=== PATIENT | female | born 1960 | race African-American/Black ===

== ENCOUNTER 2018-08-19 14:13 | Inpatient (IN) | payer SELFPAY ==
[2018-08-19] MEDS ORDERED: Ondansetron PF 4 MG/2 ML Vial IVP PRN (15:22)
[2018-08-19] MEDS ORDERED: Acetaminophen 650 MG in Premix Bag 1 BAG IVPB PRN (15:29)
[2018-08-19] MEDS: Sodium Chloride 0.9% 1,000 ML IV SCH (17:45)
[2018-08-19 17:51] VITALS: BMI 19.8
[2018-08-19] MEDS: niCARdipine HCl 25 MG in Sodium Chloride 0.9% 250 ML 240 ML IVPB SCH (18:21)
--- NOTE | 2018-08-19 21:04 | CON ---
DATE OF CONSULTATION: 08/19/2018 TIME SPENT: 70 minutes time, of that time, greater than 50% was spent with the patient and/or the patient's unit in the hospital. REASON FOR CONSULTATION: ICU management of an acute brain bleed. HISTORY OF PRESENT ILLNESS: The patient was accepted by the ER in transfer from [place]. She apparently was working earlier today and developed a right-sided facial droop with dysarthria. She came in and was found to have a left intraparenchymal brain bleed. It is about 2-1/2 cm in size. She is currently being managed medically for that. Before she left [place], she was given Ativan because they were afraid she would go into alcohol withdrawal. She has been somnolent since receiving the Ativan. PAST MEDICAL HISTORY: Hypertension. PAST SURGICAL HISTORY: Not known. SOCIAL HISTORY: Drinks about 2 beers a day. Occasionally uses marijuana. Smokes half pack per day. 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 ALLERGIES: NONE. MEDICATIONS: Prior to admission, apparently none. REVIEW OF SYSTEMS: Cannot be obtained because the patient is somnolent. PHYSICAL EXAMINATION: VITAL SIGNS: Temperature 96.7, pulse 67, blood pressure 135/90, O2 saturation 94%. GENERAL: She will slightly open her eyes to verbal stimuli. She is able to withdrawal to pain without limitation. HEENT: Pupils 2 mm, reactive. Sclerae anicteric. Oropharynx clear. She has a positive gag. NECK: No adenopathy, JVD, or bruits. LUNGS: Clear without wheezing, rhonchi. CARDIAC: S1, S2 regular without audible murmur. ABDOMEN: Soft, nontender, nondistended. EXTREMITIES: No clubbing, cyanosis, or edema. NEUROLOGIC: She will follow some commands for me. She withdraws to pain on all extremities except for the right arm briskly. LABORATORY DATA: White blood cell count 5.5, hematocrit 39.1, and platelet count 122. INR 1.1, PTT 34.1. Sodium 134, potassium 3.4, chloride 98, CO2 of 23, BUN 4, creatinine 0.6, glucose 115. CT shows a 2.2 x 3.6 cm bleed in the left globus pallidus. ASSESSMENT: 1. Intraparenchymal brain bleed, probably secondary to hypertension. The patient currently not in hypertensive emergency. 2. Altered mental status secondary to brain bleed and perhaps from receiving Ativan. PLAN: 1. She will be monitored in CCU for any respiratory decompensation. At the time of my exam, I did not feel that there was any pressing need to intubate or control the airway. 2. Replace thiamine given her alcohol history. 3. Withhold any type of sedating medications as much as possible. 4. Follow labs. 5. Check chest x-ray tomorrow morning. Job ID: [id number]
--- NOTE | 2018-08-19 22:07 | HP ---
HISTORY OF PRESENT ILLNESS: The patient is a 58-year-old female, who was transferred from [facility] for acute intracranial hemorrhage. History is limited by the patient's condition and most of the history is obtained by records. The patient reportedly was at her job when she had sudden onset of slurred speech and right-sided weakness and was brought to the emergency department for further evaluation. CT head was done on arrival, which is notable for a left basal ganglia intracranial hemorrhage. She was reportedly started on a nitroglycerin drip, although I have no records of vital signs that indicate significant hypertension. She was also given 2 mg of IM Ativan prior to arrival for reported seizure prophylaxis. I am visiting with the patient at the bedside in the [facility] ER. She has a GCS of 9. At this time, she will open her eyes to pain. Her words are incomprehensible and she will localize pain. She has a slightly decreased platelet count at 122. Her coags are normal. The remainder of her electrolytes are fairly unremarkable. Past medical history, past surgical history, and current medication list are unobtainable. Old records indicate that the patient drinks daily, approximately 5 drinks per day and has a history of marijuana abuse. She is also a smoker, but smokes half a pack per day. Lives at home with her family. ALLERGIES: PER RECORDS, NO KNOWN DRUG ALLERGIES. REVIEW OF SYSTEMS: Unobtainable. PHYSICAL EXAMINATION: VITAL SIGNS: Blood pressure is 136/86, pulse is 68, respirations 16, the patient is currently 100% on 2 L nasal cannula, and her temperature is 97.9. She has a GCS of 9. HEENT: Head, normocephalic and atraumatic. Eyes; pupils are small, equal, sluggish. She has a left gaze preference. ENT; oral mucosa is pink, intact, and moist. NECK: Nontender to palpation. RESPIRATORY: She has symmetric chest expansion. No evidence of dyspnea. CARDIOVASCULAR: Regular rate and rhythm. MUSCULOSKELETAL: Right upper extremity is not withdrawal to pain and no motor function is appreciated. She is spontaneously moving the lower extremities and the left upper extremity. withdrawal to pain. NEURO: She has a GCS of 9. She opens her eyes to pain. Her voice is incomprehensible and she localizes pain. ASSESSMENT AND PLAN: This is a 58-year-old female with unknown past medical history, who presented as transfer for acute left basal ganglia intracranial hemorrhage. I suspect that this may be hypertensive in origin. However, she is not currently hypertensive in the department and has no past medical history. She was started on a nitroglycerin drip prior to arrival, but this was to discontinued on arrival to the emergency department here. This may be keeping her blood pressure down. We will plan to admit to the ICU and monitor her closely with q.1 neuro checks. The head of the bed will be elevated at 30 degrees. We will maintain strict blood pressure goal control with systolic blood pressure goal of less than 140. I will plan to repeat her a.m. head CT for repeat evaluation. I have consulted Critical Care as well as the Medicine Team for assistance in management on this patient. I have discussed this plan with Dr. Lake, who is in agreement. Job ID: [id number]
[2018-08-19] MEDS: Famotidine/PF 20 mg/2ml Vial SLOW IVP SCH (22:30)
--- NOTE | 2018-08-20 01:50 | CON ---
DATE OF CONSULTATION: PRIMARY CARE PHYSICIAN: No PCP. CHIEF COMPLAINT: Weakness and slurred speech. HISTORY OF PRESENT ILLNESS: The patient is a 58-year-old female with past medical history of hypertension, who was transferred from the [place] ER for acute intracranial hemorrhage. History is limited and was obtained through her friend who was present at bedside. The hospitalist team was consulted for the medical management. Per review of chart and from the history, the patient was taking lisinopril, dosage unknown. It is not known that the patient was taking any other medication besides that. The patient came to work and found to have left intracranial hemorrhage bleed, and was transferred to the [facility] for further management. The patient smokes cigarettes daily. She had no history of illicit drugs. PAST MEDICAL HISTORY: Hypertension. PAST SURGICAL HISTORY: Unknown. PAST FAMILY HISTORY: Unknown. ALLERGIES: NONE. SOCIAL HISTORY: The patient drinks alcohol. She smokes half a pack per day. MEDICATIONS: Lisinopril. REVIEW OF SYSTEMS: Unable to perform at this point, as the patient did not respond to my questions. PHYSICAL EXAMINATION: VITAL SIGNS: Blood pressure 124/88, respiration rate 17, O2 saturation 99% on nasal cannula, temperature 98.4. HEENT: Head is atraumatic. Ears and nose grossly appears to be normal. Throat , no exudate noted. NECK: No lymphadenopathy noted. CARDIOVASCULAR: No murmurs, rubs, or gallops. Regular rate and rhythm. RESPIRATORY: Clear bilaterally. No wheezes. GASTROINTESTINAL: Soft and nontender. Bowel sounds positive. EXTREMITIES: Lower extremities, no edema noted. NEUROLOGICAL: The patient opens her eyes, will respond to command, but she is unable to say any words. The patient also is unable to move her left upper and lower extremities. The patient was noted to move her Rt upper and lower extremity. Unable to assess sensation as the patient did not respond to my commands. SKIN: No rashes noted. LABORATORY DATA: CBC; white blood cell count 5.5, hemoglobin 12.5, hematocrit 39, platelets 122. INR 1.1. PT 14.3. Chemistry; sodium 134, potassium 3.4, chloride 98, carbon dioxide 23, BUN 4, creatinine 0.67, glucose 115. AST 95, ALT 50. Toxicology screen, salicylate and acetaminophen, negative. Plasma alcohol level positive. CT of the head is reviewed and is significant for intraparenchymal hematoma with left globus pallidus, mild chronic small vessel with white matter ischemic changes noted. ASSESSMENT: 1. Intraparenchymal hemorrhage, likely due to uncontrolled hypertension. 2. Hypertension. 3. Alcohol abuse. 4. Smoker. PLAN: 1. The patient is admitted to the ICU by Neurosurgery. Vice President Payer consulted. The patient is on Cardene drip. We will continue Cardene drip to keep her blood pressure under control. TTE and US carotid ordered. 2. I am placing a consult for Neurology. 3. Follow up with CT head in the morning. 4. Continue current regimen. 5. DVT prophylaxis, SCD. 6. Medical power of tire curer is likely to be a daughter who is coming from [place]. Thank you for the consult. Hospitalist team will continue to follow. Job ID: [id number] TERESE
[2018-08-20 05:14] LABS: #Eosinphils 0.1 thou/uL (0.0-0.7); #Lymphocytes 1.1 thou/uL (1.20-3.40); #Monocytes 0.6 thou/uL (0.11-0.59); %Basophils 0.5 % (0.0-1.0); %Eosinophils 1.2 % (0.0-10.0); %Lymphocytes 18.7 % (21.0-51.0); %Monocytes 9.6 % (0.0-10.0); Hemoglobin 12.4 g/dL (12.0-16.0); Mean Corpuscular HGB CONC 31.7 g/dL (32.0-36.0); Mean Corpuscular Hemoglobin 33.1 pg (27.0-31.0); Mean Platelet Volume 9.1 fL (7.4-10.4); Platelet Count 129 thou/uL (130-400); RBC Distribution Width 12.5 % (11.5-14.5); Red Blood Cell (RBC) Count 3.73 mill/uL (4.20-5.40); White Blood Cell (WBC) Count 5.7 thou/uL (4.8-10.8)
[2018-08-20 05:30] LABS: Anion Gap 13 mmol/L (10-20); BUN (Urea Nitrogen) 6 mg/dL (9.8-20.1); Calc. Creatinine Clearance 83 mL/min (70-130); Calcium 9.8 mg/dL (7.8-10.44); Carbon Dioxide 24 mmol/L (22-29); Chloride 103 mmol/L (98-107); Estimated GFR-MDRD Greater than 90; Glucose 93 mg/dL (70-105); Potassium 3.6 mmol/L (3.5-5.1); Sodium 136 mmol/L (136-145)
[2018-08-20] MEDS: Sodium Chloride 0.9% 1,000 ML IV SCH ×2 (06:19→18:13)
--- NOTE | 2018-08-20 07:42 | CT ---
CT OF THE BRAIN WITHOUT IV CONTRAST: INDICATION: Followup intracranial hemorrhage. COMPARISON: Prior CT examination dated 08/19/2018 at 12:30 p.m. FINDINGS: The intraparenchymal hemorrhage centered within the left globus pallidus is slightly increased in siz e now measuring 3.9 x 2.7 cm where it previously measured 3.7 x 2.2 cm. There is slight worsening va sogenic edema surrounding the hemorrhage. There has been interval development of some slight left-to -right midline shift of approximately 3 mm. No hydrocephalus is present. No additional intracranial hemorrhage is evident. The skull and extracranial soft tissues are unremarkable-appearing. IMPRESSION: 1. Interval enlargement of the intraparenchymal hemorrhage seen within the left globus pallidus with interval development of slight [id number] midline shift of 3 mm. 2. Findings were called to Karma Cintron RN caring for this patient in the CCU, at 4:10 a.m. on 08/20/19 19. CODE CR POS: AYDEN
--- NOTE | 2018-08-20 08:12 | PRG ---
DATE OF SERVICE: 08/20/2018 SUBJECTIVE: The patient remains in the CCU. I was able to get her to wake up, state her name. She is able to move her left side without difficulty. She can stick her tongue out. She has a gag reflex. She can move her right leg, but I would assess that strength of 2/5 versus 5/5 on the left side. She cannot move her right arm. OBJECTIVE: VITAL SIGNS: Temperature 98.2, pulse 70, blood pressure 138/88, O2 saturation 100%. HEENT: Unremarkable. NECK: No JVD. CHEST: Clear to auscultation without wheezing or rhonchi. CARDIAC: S1, S2. Regular. ABDOMEN: Soft. EXTREMITIES: No edema. LABORATORY DATA: White blood cell count 5.7, hematocrit 39, and platelet count 129. Sodium 136, potassium 3.6, chloride 103, CO2 of 24, BUN 6, creatinine 0.7, glucose 93. Her chest x-ray shows no mass, effusion, or infiltrate. The CT of the head repeated today shows a slight increase in size and the intraparenchymal brain bleed on the left compared to yesterday. ASSESSMENT: 1. Hemorrhagic cerebrovascular accident. 2. Hypertension. 3. Substance abuse. RECOMMENDATION: 1. Continue blood pressure control with nicardipine. Her airway is stable and she does not need to be intubated. She can likely be transferred out to the stroke floor as soon as her need for nicardipine has been eliminated. That call will ultimately made by the neurosurgeons. 2. Continue thiamine for few more days given history of alcohol intake in the past. 3. DT precautions. Job ID: [id number]
--- NOTE | 2018-08-20 08:35 | RAD ---
CHEST 1 VIEW: INDICATION: Concern for aspiration. COMPARISON: None. FINDINGS: There are patchy opacities within the right lung base which can be seen with aspiration pneumonitis. Two-view chest radiograph if possible may be helpful. Left lung is clear. Heart size is normal. N o acute osseous abnormality is evident. IMPRESSION: Patchy airspace opacity right lower lobe may reflect sequelae of aspiration pneumonitis or pneumonia. POS: BH
--- NOTE | 2018-08-20 08:50 | ULT ---
CAROTID DUPLEX ULTRASOUND: INDICATION: History of CVA. COMPARISON: None. FINDINGS: There is moderate partially calcified atherosclerotic plaque involving the right proximal internal ca rotid artery. There is mild partially calcified atherosclerotic plaque involving the proximal left i nternal carotid artery. There is intimal thickening in the common carotid arteries bilaterally. Peak systolic velocity of the right ICA was 59.7 cm/s and the right CCA 74.5 cm/s. The right IC/CC r atio is 0.8. Peak systolic velocity of the left ICA was 54.2 cm/s and the peak systolic velocity of the left CCA w as 99.4 cm/s. The left IC/CC ratio is 0.55. There is antegrade flow within both vertebral arteries. IMPRESSION: No hemodynamically significant stenosis. POS: BH
[2018-08-20] MEDS: Famotidine/PF 20 mg/2ml Vial SLOW IVP SCH ×2 (09:42→21:35)
--- NOTE | 2018-08-20 12:52 | PRG ---
DATE OF SERVICE: 08/20/2018 SUBJECTIVE: Seeing Mrs. Callaway for a basal ganglia hemorrhage. The patient was seen and examined. I agree with Kerline Warner's evaluation on 08/19/2018. The patient is a 58-year-old woman with hypertension, who had sudden onset right hemiparesis. OBJECTIVE: Currently, she is alert and interactive, although her verbal is slightly sluggish. She has a dense right hemiparesis affecting the arm much greater than the leg. She has strong on the left. LABORATORY DATA: Head CT shows a left basal ganglia hemorrhage. There was some enlargement overnight. The pattern of hemorrhage is typical of hypertensive hemorrhage. IMPRESSION AND PLAN: Nonsurgical hypertensive hemorrhage in the left basal ganglia. A stroke protocol is underway and MRI is pending as well as echocardiography. We will continue with ICU care. Given the slight enlargement on the CT this morning, but tomorrow if things are clinically stable, she can be transferred to the medical service and transferred to the Stroke Unit. Job ID: [id number]
--- NOTE | 2018-08-20 13:13 | MRI ---
BRAIN MRI WITHOUT CONTRAST: DATE: 08/20/2018. COMPARISON: None. HISTORY: Basal ganglia intracranial hemorrhage on left seen on recent CT examination also performed 08/20/2018. TECHNIQUE: Multiplanar multisequence MR imaging of the brain obtained without contrast. FINDINGS: Gradient echo imaging demonstrates prominent blooming artifact centered within the basal ganglia on t he left consistent with the patient's known intraaxial hemorrhage. This hemorrhage measures 4.7 x 3. 2 cm in greatest AP/transverse dimension, slightly enlarged when compared to the prior head CT. Ther e is persistent mass effect on the adjacent left lateral ventricle which is flattened. There is new mild midline shift from left to right at the level, measuring 5 mm at the axial level of the 3rd ventricle. There is surrounding vasogenic edema. Gradient echo imaging demonstrates an add itional area of blooming artifact within the posterior inferior right basal ganglia suggesting remote hemorrhage and/or intracranial calcification. Regional bone marrow signal intensity appears within normal limits. Imaged paranasal sinuses/mastoid air cells are well aerated. Arterial flow voids at axial level of skull base appear grossly unremarkable on the T2 weighted imagi ng. The diffusion weighted imaging demonstrates no evidence for acute infarction. IMPRESSION: Intraaxial hemorrhage centered within the basal ganglia on the left. The hemorrhage has slightly enl arged in size and the degree of mass effect has slightly worsened with new mild [id number]-az-[id number] midline shift. Continued followup via head CT is advised. POS: BRYN
--- NOTE | 2018-08-20 13:36 | CON ---
DATE OF TELEMEDICINE CONSULTATION: 08/20/2018 CHIEF COMPLAINT: Acute intracerebral hemorrhage. HISTORY OF PRESENT ILLNESS: The patient is unable to give history. Her friend was in the room, but he is not sure much of medical history and left during the consultation. The patient apparently is a 58-year-old lady, who was apparently at work and she had sudden onset of facial droop on the right side and fell on her right leg and was brought to the ER. CT of the head showed left basal ganglia intracerebral hemorrhage. Since admission, she has remained stable and she is now able to follow commands and try to talk. Her past medical history positive for hypertension. Past surgical history and medication list are unavailable. I also reviewed her medical records from this hospitalization and per ER doc as well, medical history is unverifiable. SOCIAL HISTORY: Apparently, the patient drinks daily. She uses drugs and abuses marijuana per chart and the patient denies using any smoke tobacco, but her chart states that the patient smokes half pack per day, lives at home with friend. ALLERGIES: NO KNOWN DRUG ALLERGIES. MEDICATION LIST: Unavailable. Her current medications in the hospital are Tylenol, famotidine. She is on nicardipine drip, Zofran, and thiamine. FAMILY HISTORY: Unknown. REVIEW OF SYSTEMS: Difficult to obtain due to the patient's aphasia. PHYSICAL EXAMINATION: VITAL SIGNS: Blood pressure was 130/85, pulse rate is 66, and the patient is afebrile. Her temperature was 98.5. GENERAL APPEARANCE: Thin built, well-nourished lady, who seems to be aphasic, but tries to respond. CHEST: Clear vesicular breathing. CARDIOVASCULAR: S1 and S2 heard. No murmurs. ABDOMEN: Soft. NEUROLOGIC: Higher intellectual function. She is unable to verbalize. She is aphasic, but she is able to follow commands. Cranial nerves 2 through 12, pupils 1 mm reactive and equal bilaterally. Normal extraocular movements. She has decreased facial sensation on the right side. She had a right facial droop. Palate elevates equally. Normal hearing bilaterally. She has tongue deviation to the right. Motor examination; bulk normal, tone is decreased on the right side, strength is 0/5 on the right side and left 4/5 in both upper and lower extremities. She is able to wiggle her toes on the right leg. Muscle groups tested are deltoid, biceps, triceps, wrist extension, flexion, finger extension and flexion bilaterally. In the iliopsoas, hamstrings, quadriceps, ankle dorsiflexion, plantar flexion. Deep tendon reflexes 2+ throughout in upper and lower extremities. Sensory examination, decreased sensation in the right upper and lower extremity as well to touch. Unable to assess proprioception. Cerebellar, normal [id number] on the left side. LABORATORY WORKUP: White count 5.7, hemoglobin 12.4, hematocrit 39, platelets 129. Sodium 136, potassium 3.6, chloride 103, bicarb 24, BUN 6, and creatinine 0.67. DIAGNOSTIC STUDIES: CT of the head showed enlargement of the intraparenchymal hemorrhage within the left globus pallidus with interval development of slight cuoq-of-mfqtn midline shift of 3 mm. Size of hemorrhage is 3.9 x 2.7 cm. IMPRESSION: The patient is a 58-year-old lady with left globus pallidus hemorrhage as noted, likely due to hypertension and her urine tox screen is positive for marijuana and she stated she does not use cocaine. This could be chemical abuse related hemorrhage. Also possible she may have baseline hypertension, which is caused a hypertensive hemorrhage in her case. Her current examination shows the right-sided weakness along with sensory loss consistent with the location of her bleed. RECOMMENDATIONS: Please perform neurologically very closely in the ICU until the patient is more stable, consider PT/OT. Once she is more stable, repeat her CT of the head again on Wednesday to check for the hemorrhage progression. Consider MRI of the brain. I will follow up the patient tomorrow. Job ID: [id number] [facility]
--- NOTE | 2018-08-20 14:27 | PDOC.PN ---
- Subjective Encounter Start Date: 08/20/18 Encounter Start Time: 14:26 Patient seen and examined, no family at bedside. No new issues per staff. - Objective Vital Signs & Weight: Vital Signs (12 hours) Temp BP Pulse Ox 08/20/18 13:00 98.9 F 08/20/18 11:10 148/95 H 08/20/18 08:00 98.5 F 97 08/20/18 04:00 98.2 F Weight Weight 122 lb 5.705 oz Most Recent Monitor Data Heart Rate from ECG 59 NIBP 136/85 NIBP BP-Mean 102 Respiration from ECG 12 SpO2 97 I&O: 08/19/18 08/20/18 08/21/18 06:59 06:59 06:59 Intake Total 1129 Output Total 3 2 Balance 1126 -2 Result Diagrams: 08/20/18 04:27 08/20/18 04:27 Phys Exam - Physical Examination Constitutional: NAD HEENT: PERRLA, moist MMs, sclera anicteric Neck: no nodes, no JVD, supple Respiratory: no wheezing, no rales, no rhonchi Cardiovascular: RRR, no significant murmur, no rub Gastrointestinal: soft, non-tender, no distention, positive bowel sounds Musculoskeletal: no edema, pulses present not moving RLE, RUE weak 3/5 elbow flexion Dx/Plan (1) Brain bleed Code(s): I61.9 - NONTRAUMATIC INTRACEREBRAL HEMORRHAGE, UNSPECIFIED Status: Acute (2) Diabetic ketoacidosis Code(s): E13.10 - OTH DIABETES MELLITUS WITH KETOACIDOSIS WITHOUT COMA Status : Acute (3) Hypertension Code(s): I10 - ESSENTIAL (PRIMARY) HYPERTENSION Status: Acute - Plan * Continue cardene drip for now, target SBP 120-140mmHg * neurosx following * echo pending * work up pending * keep in icu for now
[2018-08-20] MEDS: niCARdipine HCl 25 MG in Sodium Chloride 0.9% 250 ML 240 ML IVPB SCH (18:13)
[2018-08-21 05:40] LABS: #Basophils 0.1 thou/uL (0.0-0.2); #Eosinphils 0.2 thou/uL (0.0-0.7); #Lymphocytes 1.6 thou/uL (1.20-3.40); #Monocytes 0.6 thou/uL (0.11-0.59); #Neutrophils 4.2 thou/uL (1.40-6.50); %Basophils 1.2 % (0.0-1.0); %Eosinophils 2.6 % (0.0-10.0); %Lymphocytes 23.7 % (21.0-51.0); %Monocytes 9.3 % (0.0-10.0); %Neutrophils 63.2 % (42.0-75.0); Hemoglobin 12.3 g/dL (12.0-16.0); Mean Corpuscular HGB CONC 30.7 g/dL (32.0-36.0); Mean Corpuscular Hemoglobin 32.2 pg (27.0-31.0); Mean Platelet Volume 9.2 fL (7.4-10.4); Platelet Count 130 thou/uL (130-400); RBC Distribution Width 12.4 % (11.5-14.5); Red Blood Cell (RBC) Count 3.82 mill/uL (4.20-5.40); White Blood Cell (WBC) Count 6.7 thou/uL (4.8-10.8)
[2018-08-21 06:02] LABS: Anion Gap 12 mmol/L (10-20); BUN (Urea Nitrogen) 7 mg/dL (9.8-20.1); Calc. Creatinine Clearance 90 mL/min (70-130); Calcium 9.6 mg/dL (7.8-10.44); Carbon Dioxide 22 mmol/L (22-29); Chloride 104 mmol/L (98-107); Estimated GFR-MDRD Greater than 90; Glucose 95 mg/dL (70-105); Potassium 3.4 mmol/L (3.5-5.1); Sodium 135 mmol/L (136-145)
[2018-08-21] MEDS: Sodium Chloride 0.9% 1,000 ML IV SCH ×2 (06:34→17:15)
[2018-08-21] MEDS: Amlodipine 10 MG TAB PO SCH (08:23)
[2018-08-21] MEDS: Famotidine/PF 20 mg/2ml Vial SLOW IVP SCH ×2 (08:23→20:09)
--- NOTE | 2018-08-21 08:39 | PRG ---
DATE OF SERVICE: 08/21/2018 SUBJECTIVE: Ms. Callaway is awake, alert. She is able to verbalize. Neurologically, she withdraws all extremities. She moves her left side spontaneously, but will not move her right side spontaneously. OBJECTIVE: VITAL SIGNS: Her temperature is 98.3, pulse 58, blood pressure 148/83, O2 saturation 96%. 24-hour intake 2066 mL, output not quantitated. HEENT: Unremarkable. NECK: No JVD. LUNGS: Clear to auscultation. CARDIAC: S1, S2 regular without murmur. ABDOMEN: Soft, nontender. EXTREMITIES: No edema. LABORATORY DATA: Sodium 135, potassium 3.4, BUN 7, creatinine 0.6, glucose 95. White blood cell count 6.7, hematocrit 40, platelet count 130. ASSESSMENT: 1. Left-sided intracranial hemorrhage with right-sided neglect. 2. Hypertension. 3. Substance abuse. PLAN: The patient will be transferred out to the stroke floor for continued therapy. The nicardipine has been weaned off. I will start her on Norvasc. Continue thiamine for a couple of more days. Job ID: [id number]
--- NOTE | 2018-08-21 11:02 | PDOC.PN ---
- Subjective Encounter Start Date: 08/21/18 Encounter Start Time: 11:00 Patient seen and examined, friend at bedside, no new issues overnight. All questions answered. - Objective Vital Signs & Weight: Vital Signs (12 hours) Temp Pulse Resp BP BP Pulse Ox 08/21/18 09:30 98.8 F 66 18 148/95 H 100 08/21/18 08:23 67 137/92 H 08/21/18 07:57 99 08/21/18 07:53 99.6 F Weight Weight 122 lb 12.76 oz Most Recent Monitor Data Heart Rate from ECG 72 NIBP 137/92 NIBP BP-Mean 107 Respiration from ECG 15 SpO2 98 I&O: 08/20/18 08/21/18 08/22/18 06:59 06:59 06:59 Intake Total 1129 6 630 Output Total 3 10 1 Balance 1126 2055 629 Result Diagrams: 08/21/18 04:28 08/21/18 04:28 Phys Exam - Physical Examination Constitutional: NAD HEENT: PERRLA, moist MMs, sclera anicteric Neck: no nodes, no JVD, supple Respiratory: no wheezing, no rales, no rhonchi Cardiovascular: RRR, no significant murmur, no rub Gastrointestinal: soft, non-tender, no distention, positive bowel sounds Musculoskeletal: no edema, pulses present Right sided deficits Dx/Plan (1) Brain bleed Code(s): I61.9 - NONTRAUMATIC INTRACEREBRAL HEMORRHAGE, UNSPECIFIED Status: Acute (2) Diabetic ketoacidosis Code(s): E13.10 - OTH DIABETES MELLITUS WITH KETOACIDOSIS WITHOUT COMA Status : Acute (3) Hypertension Code(s): I10 - ESSENTIAL (PRIMARY) HYPERTENSION Status: Acute - Plan * continue current medical management * move out of ICU today * no surgical intervention per NeuroSx * continue with PT for now * CM consulted for DC arrangements SNF with rehab or inpatient rehab * DC plans once arrangements made * case and plan d/w patient and friend at [facility], they understood and agreed with this plan (patient was ok discussing medical condition in front of her friend)
--- NOTE | 2018-08-21 13:04 | PRG ---
DATE OF TELEMEDICINE SERVICE: 08/21/2018 CHIEF COMPLAINT: Intracerebral hemorrhage. INTERVAL HISTORY: The patient has remained stable overnight and she is currently on the regular floor. No new symptoms overnight. She continues to have right- sided weakness. Her speech has improved. LABORATORY AND OTHER REPORTS: MRI of the brain was completed on 08/20/2018. Findings show intra-axial hemorrhage within the basal ganglia on the left. Hemorrhage was slightly enlarged in the sides and degree of mass effect has worsened with new mild [id number] midline shift. Her laboratory workup; white count 6.7, hemoglobin 12.3, hematocrit 40.1, platelet count 130. Sodium 135, potassium 3.4 , chloride 104, bicarb 22, BUN 7, creatinine 0.61. PHYSICAL EXAMINATION: VITAL SIGNS: Blood pressure was 148/95, temperature 98.8, and pulse 66. GENERAL APPEARANCE: Thin built, well-nourished lady, who is now talking compared to yesterday. She is able to communicate better. Aphasia has improved. NEUROLOGIC: Cranial nerve examination, right facial droop and tongue deviation to the right. Motor examination, tone decreased with strength of 0/5 on the right side, left side normal tone with 5/5 strength. Sensory exam, decreased sensation on the right side. IMPRESSION: The patient with left basal ganglia hemorrhage, likely due to underlying hypertension. No further information is available regarding her previous medical issues. She might have hypertension at baseline. She is also using some marijuana and other drugs, which could have contributed to the bleed. TREATMENT RECOMMENDATIONS: Please continue to monitor her bleed. Plan for rehab, repeat her CT tomorrow to monitor the bleed and call Neurology if you have any further questions. Job ID: [id number] [facility]
[2018-08-21] MEDS: Acetaminophen 325 MG TAB PO PRN (20:15)
[2018-08-22] MEDS: Sodium Chloride 0.9% 1,000 ML IV SCH ×2 (05:33→11:10)
[2018-08-22 07:55] LABS: #Basophils 0.1 thou/uL (0.0-0.2); #Eosinphils 0.2 thou/uL (0.0-0.7); #Lymphocytes 1.4 thou/uL (1.20-3.40); #Monocytes 0.7 thou/uL (0.11-0.59); %Basophils 1.1 % (0.0-1.0); %Eosinophils 2.7 % (0.0-10.0); %Lymphocytes 21.8 % (21.0-51.0); %Monocytes 10.9 % (0.0-10.0); %Neutrophils 63.5 % (42.0-75.0); Hemoglobin 12.2 g/dL (12.0-16.0); Mean Corpuscular HGB CONC 30.8 g/dL (32.0-36.0); Mean Corpuscular Hemoglobin 32.8 pg (27.0-31.0); Mean Platelet Volume 8.7 fL (7.4-10.4); Platelet Count 140 thou/uL (130-400); RBC Distribution Width 12.5 % (11.5-14.5); Red Blood Cell (RBC) Count 3.73 mill/uL (4.20-5.40); White Blood Cell (WBC) Count 6.3 thou/uL (4.8-10.8)
[2018-08-22 08:29] LABS: Anion Gap 13 mmol/L (10-20); BUN (Urea Nitrogen) 7 mg/dL (9.8-20.1); Calc. Creatinine Clearance 84 mL/min (70-130); Calcium 9.7 mg/dL (7.8-10.44); Carbon Dioxide 22 mmol/L (22-29); Chloride 105 mmol/L (98-107); Estimated GFR-MDRD Greater than 90; Glucose 104 mg/dL (70-105); Potassium 3.6 mmol/L (3.5-5.1); Sodium 136 mmol/L (136-145)
[2018-08-22] MEDS: Amlodipine 10 MG TAB PO SCH (11:09)
[2018-08-22] MEDS: Famotidine/PF 20 mg/2ml Vial SLOW IVP SCH ×2 (11:09→20:00)
--- NOTE | 2018-08-22 19:30 | PDOC.PN ---
- Subjective Encounter Start Date: 08/22/18 Encounter Start Time: 19:25 Subjective: f/u for HTN induced ICH managed conservatively. Remains with dysphasia -: dysarthria, R hemiparesis. - Objective MAR Reviewed: Yes Vital Signs & Weight: Vital Signs (12 hours) Temp Pulse Resp BP BP Pulse Ox 08/22/18 15:38 99.2 F 82 16 156/93 H 94 L 08/22/18 11:38 98.6 F 56 L 16 143/90 H 98 08/22/18 11:09 53 L 138/98 H 08/22/18 09:37 100 08/22/18 07:41 98.1 F 53 L 16 138/98 H 100 Weight Weight 132 lb 0.91 oz Most Recent Monitor Data Heart Rate from ECG 72 NIBP 137/92 NIBP BP-Mean 107 Respiration from ECG 15 SpO2 98 I&O: 08/21/18 08/22/18 08/23/18 06:59 06:59 06:59 Intake Total 2065 2914 Output Total 10 Balance 2055 2913 Result Diagrams: 08/22/18 07:16 08/22/18 07:16 Radiology Reviewed by me: Yes (Echo - 60-65%, I/III diast dysfxn) EKG Reviewed by me: Yes (Tele - SR) Phys Exam - Physical Examination Constitutional: NAD HEENT: PERRLA, sclera anicteric, oral pharynx no lesions Neck: no nodes, no JVD, supple, full ROM Respiratory: no wheezing, no rales, no rhonchi, clear to auscultation bilateral S1, S2 Cardiovascular: RRR, no significant murmur, no rub, gallop Gastrointestinal: soft, non-tender, no distention, positive bowel sounds Musculoskeletal: no edema, pulses present R hemiparesis, dysphasia, dysarthria Skin: normal turgor, cap refill <2 seconds Dx/Plan (1) Intracranial hemorrhage Code(s): I62.9 - NONTRAUMATIC INTRACRANIAL HEMORRHAGE, UNSPECIFIED Status: Acute Comment: L basal ganglia involvement managed conservatively, stroke protocol, ST/PT/OT (2) Hypertensive emergency Code(s): I16.1 - HYPERTENSIVE EMERGENCY Status: Acute Comment: Resolved, continue Norvasc, add PRN Hydralazine (3) Tobacco abuse Code(s): Z72.0 - TOBACCO USE Status: Chronic Comment: Cessation resources (4) Diastolic dysfunction Code(s): I51.89 - OTHER ILL-DEFINED HEART DISEASES Status: Chronic Comment: HTN mgmt, Lipitor 40mg HS - Plan PT/OT, social welfare clerk, speech therapy, DVT proph w/SCDs Stable currently -: Continue Norvasc -: Add Lipitor 40mg HS -: ST/PT/OT -: Rehab/SNF/NH options * .
[2018-08-22] MEDS ORDERED: hydrALAZINE 20 MG/ML VIAL SLOW IVP PRN (19:43)
[2018-08-22] MEDS: Atorvastatin Calcium 40 MG TAB PO SCH (20:45)
[2018-08-23] MEDS: Amlodipine 10 MG TAB PO SCH (08:59)
[2018-08-23] MEDS: Famotidine/PF 20 mg/2ml Vial SLOW IVP SCH (08:59)
[2018-08-23] MEDS: Sodium Chloride 0.9% 1,000 ML IV SCH ×2 (09:00→14:59)
--- NOTE | 2018-08-23 18:32 | PDOC.PN ---
- Subjective Encounter Start Date: 08/23/18 Encounter Start Time: 18:30 Subjective: f/u for HTN-induced ICH with dysphasia, dysphagia and R hemiparesis -: No new complaints - Objective MAR Reviewed: Yes Vital Signs & Weight: Vital Signs (12 hours) Temp Pulse Pulse Pulse Resp BP BP 08/23/18 16:00 98.4 F 54 L 16 08/23/18 11:50 98.1 F 55 L 16 08/23/18 11:05 52 L 56 L 150/84 H 08/23/18 08:59 51 L 126/83 08/23/18 08:50 08/23/18 07:47 97.7 F 51 L 16 BP BP BP Pulse Ox 08/23/18 16:00 122/74 99 08/23/18 11:50 149/86 H 100 08/23/18 11:05 149/86 H 08/23/18 08:59 08/23/18 08:50 98 08/23/18 07:47 126/83 98 Weight Weight 130 lb 1.164 oz Most Recent Monitor Data Heart Rate from ECG 72 NIBP 137/92 NIBP BP-Mean 107 Respiration from ECG 15 SpO2 98 I&O: 08/22/18 08/23/18 08/24/18 06:59 06:59 06:59 Intake Total 2915 Output Total 1 Balance 2914 Result Diagrams: 08/22/18 07:16 08/22/18 07:16 EKG Reviewed by me: Yes (Tele - SR) Phys Exam - Physical Examination Constitutional: NAD HEENT: PERRLA, sclera anicteric, oral pharynx no lesions Neck: no nodes, no JVD, supple, full ROM Respiratory: no wheezing, no rales, no rhonchi, clear to auscultation bilateral S1, S2 Cardiovascular: RRR, no significant murmur, no rub, gallop Gastrointestinal: soft, non-tender, no distention, positive bowel sounds Musculoskeletal: no edema, pulses present R hemiplegia with RUE flaccid paralysis, dysarthric Psychiatric: A&O x 3 Skin: normal turgor, cap refill <2 seconds Dx/Plan (1) Intracranial hemorrhage Code(s): I62.9 - NONTRAUMATIC INTRACRANIAL HEMORRHAGE, UNSPECIFIED Status: Acute Comment: L basal ganglia involvement managed conservatively, stroke protocol, ST/PT/OT (2) Hypertensive emergency Code(s): I16.1 - HYPERTENSIVE EMERGENCY Status: Acute Comment: Resolved, continue Norvasc, add PRN Hydralazine (3) Tobacco abuse Code(s): Z72.0 - TOBACCO USE Status: Chronic Comment: Cessation resources (4) Diastolic dysfunction Code(s): I51.89 - OTHER ILL-DEFINED HEART DISEASES Status: Chronic Comment: HTN mgmt, Lipitor 40mg HS - Plan PT/OT, health care social worker, speech therapy, respiratory therapy, DVT proph w/SCDs Continue routine stroke protocol -: ST/PT/OT -: CM assisting with SNF options -: Saline lock IVF's -: Add Lisinopril 10mg daily * .
[2018-08-23] MEDS ORDERED: Lisinopril 10 MG TAB PO SCH (18:45)
[2018-08-23] MEDS: Famotidine 20 MG TAB PO SCH (21:00)
[2018-08-23] MEDS: Atorvastatin Calcium 40 MG TAB PO SCH (21:00)
[2018-08-24] MEDS: Lisinopril 10 MG TAB PO SCH (09:09)
[2018-08-24] MEDS: Amlodipine 10 MG TAB PO SCH (09:09)
[2018-08-24] MEDS: Famotidine 20 MG TAB PO SCH ×2 (09:09→20:12)
[2018-08-24] MEDS: Atorvastatin Calcium 40 MG TAB PO SCH (20:13)
--- NOTE | 2018-08-24 20:45 | PDOC.PN ---
- Subjective Encounter Start Date: 08/24/18 Encounter Start Time: 20:35 Subjective: f/u for HTN-induced ICH with dysphasia, dysphagia, R hemiparesis. -: MID LEVEL JAVA DEVELOPER recommending diet with risk as pt likely aspirating small amounts -: but does not want PEG. - Objective MAR Reviewed: Yes Vital Signs & Weight: Vital Signs (12 hours) Temp Pulse Pulse Pulse Resp BP BP 08/24/18 16:00 97.3 F L 69 16 08/24/18 15:02 65 60 118/72 08/24/18 11:37 65 60 130/80 08/24/18 11:17 97.9 F 62 16 08/24/18 09:09 50 L 128/81 BP BP Pulse Ox 08/24/18 16:00 118/72 98 08/24/18 15:02 128/72 08/24/18 11:37 123/78 08/24/18 11:17 129/81 98 08/24/18 09:09 Weight Weight 131 lb Most Recent Monitor Data Heart Rate from ECG 72 NIBP 137/92 NIBP BP-Mean 107 Respiration from ECG 15 SpO2 98 I&O: 08/23/18 08/24/18 08/25/18 06:59 06:59 06:59 Intake Total 2059 Balance 2059 Result Diagrams: 08/22/18 07:16 08/22/18 07:16 EKG Reviewed by me: Yes (Tele - SR) Phys Exam - Physical Examination Constitutional: NAD + dysphasia, alert, responsive HEENT: PERRLA, sclera anicteric, oral pharynx no lesions Neck: no nodes, no JVD, supple, full ROM Respiratory: no wheezing, no rales, no rhonchi, clear to auscultation bilateral S1, S2 Cardiovascular: RRR, no significant murmur, no rub, gallop Gastrointestinal: soft, non-tender, no distention, positive bowel sounds Musculoskeletal: no edema, pulses present R hemiparesis, dysphasia moves LAUREEN/LLE Psychiatric: A&O x 3 Skin: normal turgor, cap refill <2 seconds Dx/Plan (1) Intracranial hemorrhage Code(s): I62.9 - NONTRAUMATIC INTRACRANIAL HEMORRHAGE, UNSPECIFIED Status: Acute Comment: L basal ganglia involvement managed conservatively, stroke protocol, ST/PT/OT (2) Hypertensive emergency Code(s): I16.1 - HYPERTENSIVE EMERGENCY Status: Acute Comment: Resolved, continue Norvasc, add PRN Hydralazine (3) Tobacco abuse Code(s): Z72.0 - TOBACCO USE Status: Chronic Comment: Cessation resources (4) Diastolic dysfunction Code(s): I51.89 - OTHER ILL-DEFINED HEART DISEASES Status: Chronic Comment: HTN mgmt, Lipitor 40mg HS - Plan PT/OT, social insurance analyst, speech therapy, DVT proph w/SCDs Stable currently -: Awaiting SNF options given financial constraints -: PT/OT/ST -: Continue Lipitor -: Continue Amlodipine/Lisinopril * .
[2018-08-25] MEDS: Famotidine 20 MG TAB PO SCH ×2 (10:06→21:37)
[2018-08-25] MEDS: Lisinopril 10 MG TAB PO SCH (10:06)
[2018-08-25] MEDS: Amlodipine 10 MG TAB PO SCH (10:06)
[2018-08-25] MEDS: Acetaminophen 325 MG TAB PO PRN ×2 (15:27→21:37)
--- NOTE | 2018-08-25 16:47 | PDOC.PN ---
- Subjective Encounter Start Date: 08/25/18 Encounter Start Time: 10:15 Subjective: pt up in bed no complains - Objective Vital Signs & Weight: Vital Signs (12 hours) Temp Pulse Resp BP BP BP Pulse Ox 08/25/18 16:00 98.5 F 69 16 129/77 100 08/25/18 11:41 98.6 F 53 L 16 115/64 99 08/25/18 10:06 53 L 123/73 08/25/18 07:29 99.4 F 53 L 16 123/73 99 Weight Weight 130 lb 12.8 oz Most Recent Monitor Data Heart Rate from ECG 72 NIBP 137/92 NIBP BP-Mean 107 Respiration from ECG 15 SpO2 98 I&O: 08/24/18 08/25/18 08/26/18 06:59 06:59 06:59 Intake Total 2059 490 Balance 2059 490 Result Diagrams: 08/22/18 07:16 08/22/18 07:16 Phys Exam - Physical Examination Respiratory: no wheezing, no rales, no rhonchi, wheezing present, clear to auscultation bilateral Cardiovascular: RRR, no significant murmur, no rub, gallop, irregular Gastrointestinal: soft, non-tender, no distention, positive bowel sounds Musculoskeletal: no edema, pulses present, edema present no movement to right upper ext, minimal to right lower ext. slurred speech Dx/Plan (1) Intracranial hemorrhage Code(s): I62.9 - NONTRAUMATIC INTRACRANIAL HEMORRHAGE, UNSPECIFIED Status: Acute Comment: L basal ganglia involvement managed conservatively, stroke protocol, ST/PT/OT (2) Hypertensive emergency Code(s): I16.1 - HYPERTENSIVE EMERGENCY Status: Acute Comment: Resolved, continue Norvasc, add PRN Hydralazine (3) Hypertension Code(s): I10 - ESSENTIAL (PRIMARY) HYPERTENSION Status: Acute - Plan pt tolerating oral well -: pt uninsured unable to get rehab. -: bp controlled on current meds * . Review of Systems - Review of Systems Respiratory: negative: Cough, Dry, Shortness of Breath, Hemoptysis, SOB with Excertion, Pleuritic Pain, Sputum, Wheezing Cardiovascular: negative: chest pain, palpitations, orthopnea, paroxysmal nocturnal dyspnea, edema, light headedness, other Gastrointestinal: negative: Nausea, Vomiting, Abdominal Pain, Diarrhea, Constipation, Melena, Hematochezia, Other - Medications/Allergies Allergies/Adverse Reactions: Allergies Allergy/AdvReac Type Severity Reaction Status Date / Time No Known Allergies Allergy Unverified 08/19/18 15:44 Medications: Current Medications Acetaminophen (Tylenol) 650 mg PO Q6H PRN PRN Reason: Fever > 101 or Headache Last Admin: 08/25/18 15:27 Dose: 650 mg Amlodipine Besylate (Norvasc) 10 mg PO DAILY [facility] Last Admin: 08/25/18 10:06 Dose: 10 mg Atorvastatin Calcium (Lipitor) 40 mg PO HS [facility] Last Admin: 08/24/18 20:13 Dose: 40 mg Famotidine (Pepcid) 20 mg PO Q12HR [facility] Last Admin: 08/25/18 10:06 Dose: 20 mg Hydralazine HCl (Apresoline) 10 mg SLOW IVP Q4H PRN PRN Reason: SBP GREATER THAN 160 Lisinopril (Zestril) 10 mg PO DAILY [facility] Last Admin: 08/25/18 10:06 Dose: 10 mg Ondansetron HCl (Zofran) 4 mg IVP BIDPRN PRN PRN Reason: Nausea/Vomiting Sodium Chloride (Flush - Normal Saline) 10 ml IVF PRN PRN PRN Reason: Saline Flush Last Admin: 08/25/18 10:13 Dose: 10 ml
[2018-08-25] MEDS: Atorvastatin Calcium 40 MG TAB PO SCH (21:37)
[2018-08-26] MEDS: Amlodipine 10 MG TAB PO SCH (08:37)
[2018-08-26] MEDS: Famotidine 20 MG TAB PO SCH ×2 (08:37→21:23)
[2018-08-26] MEDS: Lisinopril 10 MG TAB PO SCH (08:37)
--- NOTE | 2018-08-26 09:42 | PDOC.PN ---
- Subjective Encounter Start Date: 08/26/18 Encounter Start Time: 09:40 Subjective: Admitted with AMS and right sided weakness and found to have acute -: intracranial bleed. -: no new problem. reports some movement in the right tumb. - Objective Vital Signs & Weight: Vital Signs (12 hours) Temp Pulse Resp BP BP Pulse Ox 08/26/18 08:37 51 L 108/68 08/26/18 07:34 98.3 F 51 L 16 108/68 100 08/26/18 04:00 98.6 F 56 L 18 116/77 100 08/26/18 00:00 99.4 F 58 L 18 100/62 96 Weight Weight 129 lb 12.8 oz Most Recent Monitor Data Heart Rate from ECG 72 NIBP 137/92 NIBP BP-Mean 107 Respiration from ECG 15 SpO2 98 I&O: 08/25/18 08/26/18 08/27/18 06:59 06:59 06:59 Intake Total 490 990 Balance 490 990 Result Diagrams: 08/22/18 07:16 08/22/18 07:16 Phys Exam - Physical Examination HEENT: PERRLA, moist MMs Neck: no JVD, supple Respiratory: no wheezing, no rales, no rhonchi Cardiovascular: RRR, no significant murmur Gastrointestinal: soft, non-tender, no distention, positive bowel sounds Musculoskeletal: no edema, pulses present conscious and alert, oriented x 3. left lower facial droop and right sided weakness noted. Power 1-2/5 RUL and 3-4/5 RLL Psychiatric: A&O x 3 Dx/Plan (1) Acute right hemiparesis Code(s): G81.91 - HEMIPLEGIA, UNSPECIFIED AFFECTING RIGHT DOMINANT SIDE Status : Acute (2) Gait disturbance, post-stroke Code(s): I69.398 - OTHER SEQUELAE OF CEREBRAL INFARCTION; R26.9 - UNSPECIFIED ABNORMALITIES OF GAIT AND MOBILITY Status: Acute (3) Hypertension Code(s): I10 - ESSENTIAL (PRIMARY) HYPERTENSION Status: Acute (4) Hypertensive emergency Code(s): I16.1 - HYPERTENSIVE EMERGENCY Status: Acute Comment: Resolved, continue Norvasc, add PRN Hydralazine (5) Intracranial hemorrhage Code(s): I62.9 - NONTRAUMATIC INTRACRANIAL HEMORRHAGE, UNSPECIFIED Status: Acute Comment: L basal ganglia involvement managed conservatively, stroke protocol, ST/PT/OT (6) Tobacco abuse Code(s): Z72.0 - TOBACCO USE Status: Chronic Comment: Cessation resources - Plan Continue PT/OT treatment -: Continue current antihypertensive. -: Needs acute rehab. residential mental health worker and case mgt on the case * .
[2018-08-26] MEDS: Atorvastatin Calcium 40 MG TAB PO SCH (21:23)
[2018-08-27] MEDS: Lisinopril 10 MG TAB PO SCH (10:04)
[2018-08-27] MEDS: Famotidine 20 MG TAB PO SCH ×2 (10:04→20:59)
[2018-08-27] MEDS: Amlodipine 10 MG TAB PO SCH (10:04)
--- NOTE | 2018-08-27 13:04 | PDOC.PN ---
- Subjective Encounter Start Date: 08/27/18 Encounter Start Time: 13:02 Subjective: No new problem. Awaiting placement - Objective Vital Signs & Weight: Vital Signs (12 hours) Temp Pulse Pulse Resp BP BP BP 08/27/18 12:00 98.9 F 55 L 16 08/27/18 11:00 54 L 120/74 08/27/18 10:04 57 L 120/74 08/27/18 08:55 08/27/18 08:00 98.8 F 57 L 16 08/27/18 04:08 98 F 52 L 14 113/73 BP Pulse Ox 08/27/18 12:00 103/59 L 100 08/27/18 11:00 08/27/18 10:04 08/27/18 08:55 97 08/27/18 08:00 120/74 97 08/27/18 04:08 99 Weight Weight 130 lb Most Recent Monitor Data Heart Rate from ECG 72 NIBP 137/92 NIBP BP-Mean 107 Respiration from ECG 15 SpO2 98 I&O: 08/26/18 08/27/18 08/28/18 06:59 06:59 06:59 Intake Total 990 1370 Balance 990 1370 Result Diagrams: 08/22/18 07:16 08/22/18 07:16 Phys Exam - Physical Examination Constitutional: NAD HEENT: PERRLA, moist MMs Neck: no JVD, supple, full ROM Respiratory: no wheezing, no rales, no rhonchi Cardiovascular: RRR, no significant murmur Gastrointestinal: soft, non-tender, no distention, positive bowel sounds Musculoskeletal: no edema Right lower facial droop. right sided weakness especially right upper limb. Dysarthria noted Psychiatric: A&O x 3 Dx/Plan (1) Acute right hemiparesis Code(s): G81.91 - HEMIPLEGIA, UNSPECIFIED AFFECTING RIGHT DOMINANT SIDE Status : Acute (2) Gait disturbance, post-stroke Code(s): I69.398 - OTHER SEQUELAE OF CEREBRAL INFARCTION; R26.9 - UNSPECIFIED ABNORMALITIES OF GAIT AND MOBILITY Status: Acute (3) Hypertension Code(s): I10 - ESSENTIAL (PRIMARY) HYPERTENSION Status: Acute (4) Hypertensive emergency Code(s): I16.1 - HYPERTENSIVE EMERGENCY Status: Acute Comment: Resolved, continue Norvasc, add PRN Hydralazine (5) Intracranial hemorrhage Code(s): I62.9 - NONTRAUMATIC INTRACRANIAL HEMORRHAGE, UNSPECIFIED Status: Acute Comment: L basal ganglia involvement managed conservatively, stroke protocol, ST/PT/OT (6) Tobacco abuse Code(s): Z72.0 - TOBACCO USE Status: Chronic Comment: Cessation resources - Plan get repeat CBC and BMP. -: Continue current treatment. -: Awaiting placement. * .
[2018-08-27] MEDS: Atorvastatin Calcium 40 MG TAB PO SCH (20:59)
[2018-08-28 05:45] LABS: #Basophils 0.1 thou/uL (0.0-0.2); #Eosinphils 0.2 thou/uL (0.0-0.7); #Lymphocytes 1.9 thou/uL (1.20-3.40); #Monocytes 0.9 thou/uL (0.11-0.59); #Neutrophils 3.6 thou/uL (1.40-6.50); %Basophils 1.3 % (0.0-1.0); %Eosinophils 3.6 % (0.0-10.0); %Lymphocytes 28.9 % (21.0-51.0); %Monocytes 12.9 % (0.0-10.0); %Neutrophils 53.3 % (42.0-75.0); Hemoglobin 11.9 g/dL (12.0-16.0); Mean Corpuscular HGB CONC 31.2 g/dL (32.0-36.0); Mean Platelet Volume 9.4 fL (7.4-10.4); Platelet Count 187 thou/uL (130-400); RBC Distribution Width 12.3 % (11.5-14.5); Red Blood Cell (RBC) Count 3.62 mill/uL (4.20-5.40); White Blood Cell (WBC) Count 6.7 thou/uL (4.8-10.8)
[2018-08-28 06:06] LABS: Anion Gap 13 mmol/L (10-20); BUN (Urea Nitrogen) 11 mg/dL (9.8-20.1); Calc. Creatinine Clearance 99 mL/min (70-130); Calcium 9.9 mg/dL (7.8-10.44); Carbon Dioxide 24 mmol/L (22-29); Chloride 104 mmol/L (98-107); Estimated GFR-MDRD Greater than 90; Glucose 104 mg/dL (70-105); Magnesium 1.9 mg/dL (1.6-2.6); Potassium 4.1 mmol/L (3.5-5.1); Sodium 137 mmol/L (136-145)
--- NOTE | 2018-08-28 06:47 | PDOC.PN ---
- Subjective Encounter Start Date: 08/28/18 Subjective: Seen and examined - Objective Vital Signs & Weight: Vital Signs (12 hours) Temp Pulse Resp BP BP Pulse Ox 08/28/18 04:00 98.4 F 53 L 16 100/62 100 08/28/18 00:00 98.1 F 53 L 16 105/66 99 08/27/18 20:00 97.2 F L 61 16 121/68 95 Weight Weight 130 lb 4.8 oz Most Recent Monitor Data Heart Rate from ECG 72 NIBP 137/92 NIBP BP-Mean 107 Respiration from ECG 15 SpO2 98 I&O: 08/26/18 08/27/18 08/28/18 06:59 06:59 06:59 Intake Total 990 1370 1160 Balance 990 1370 1160 Result Diagrams: 08/28/18 04:42 08/28/18 04:42 Phys Exam - Physical Examination Constitutional: NAD HEENT: PERRLA, moist MMs, sclera anicteric, TM's clear Neck: no nodes, no JVD, supple, full ROM Respiratory: no wheezing, no rales, no rhonchi, clear to auscultation bilateral Cardiovascular: RRR, no significant murmur, no rub Gastrointestinal: soft, non-tender, no distention, positive bowel sounds Dx/Plan (1) Acute right hemiparesis Code(s): G81.91 - HEMIPLEGIA, UNSPECIFIED AFFECTING RIGHT DOMINANT SIDE Status : Acute (2) Brain bleed Code(s): I61.9 - NONTRAUMATIC INTRACEREBRAL HEMORRHAGE, UNSPECIFIED Status: Acute (3) Diabetic ketoacidosis Code(s): E13.10 - OTH DIABETES MELLITUS WITH KETOACIDOSIS WITHOUT COMA Status : Acute (4) Gait disturbance, post-stroke Code(s): I69.398 - OTHER SEQUELAE OF CEREBRAL INFARCTION; R26.9 - UNSPECIFIED ABNORMALITIES OF GAIT AND MOBILITY Status: Acute (5) Hypertension Code(s): I10 - ESSENTIAL (PRIMARY) HYPERTENSION Status: Acute (6) Hypertensive emergency Code(s): I16.1 - HYPERTENSIVE EMERGENCY Status: Acute Comment: Resolved, continue Norvasc, add PRN Hydralazine (7) Intracranial hemorrhage Code(s): I62.9 - NONTRAUMATIC INTRACRANIAL HEMORRHAGE, UNSPECIFIED Status: Acute Comment: L basal ganglia involvement managed conservatively, stroke protocol, ST/PT/OT (8) Diastolic dysfunction Code(s): I51.89 - OTHER ILL-DEFINED HEART DISEASES Status: Chronic Comment: HTN mgmt, Lipitor 40mg HS - Plan plan discussed w/ family, PT/OT, oncology social work Awaiting response from [facility] placement -: Dispo challenge especially with lack of funding * .
[2018-08-28] MEDS: Amlodipine 10 MG TAB PO SCH (09:01)
[2018-08-28] MEDS: Famotidine 20 MG TAB PO SCH ×2 (09:02→20:23)
[2018-08-28] MEDS: Lisinopril 10 MG TAB PO SCH (09:02)
[2018-08-28] MEDS: Atorvastatin Calcium 40 MG TAB PO SCH (20:23)
[2018-08-29] MEDS: Lisinopril 10 MG TAB PO SCH (08:19)
[2018-08-29] MEDS: Amlodipine 10 MG TAB PO SCH (08:23)
[2018-08-29] MEDS: Famotidine 20 MG TAB PO SCH ×2 (08:23→21:34)
--- NOTE | 2018-08-29 09:53 | PDOC.PN ---
- Subjective Encounter Start Date: 08/29/18 Encounter Start Time: 12:10 Subjective: No complaints this AM. No fever. No cough. No SOB. - Objective MAR Reviewed: Yes Vital Signs & Weight: Vital Signs (12 hours) Temp Pulse Resp BP BP Pulse Ox 08/29/18 08:23 53 L 115/82 08/29/18 08:19 115/82 08/29/18 07:42 98.7 F 50 L 16 113/62 97 08/29/18 04:00 98.5 F 48 L 16 115/65 99 08/29/18 00:00 97.9 F 54 L 16 108/64 100 Weight Weight 130 lb 11.2 oz Most Recent Monitor Data Heart Rate from ECG 72 NIBP 137/92 NIBP BP-Mean 107 Respiration from ECG 15 SpO2 98 I&O: 08/28/18 08/29/18 08/30/18 06:59 06:59 06:59 Intake Total 1160 1590 Balance 1160 1590 Result Diagrams: 08/28/18 04:42 08/28/18 04:42 Phys Exam - Physical Examination Constitutional: NAD HEENT: moist MMs Respiratory: no wheezing, no rales, no rhonchi Cardiovascular: RRR Gastrointestinal: soft, positive bowel sounds Musculoskeletal: no edema right sided hemiparesis Psychiatric: normal affect, A&O x 3 Dx/Plan (1) Acute right hemiparesis Code(s): G81.91 - HEMIPLEGIA, UNSPECIFIED AFFECTING RIGHT DOMINANT SIDE Status : Acute (2) Brain bleed Code(s): I61.9 - NONTRAUMATIC INTRACEREBRAL HEMORRHAGE, UNSPECIFIED Status: Acute (3) Diabetic ketoacidosis Code(s): E13.10 - OTH DIABETES MELLITUS WITH KETOACIDOSIS WITHOUT COMA Status : Acute (4) Hypertension Code(s): I10 - ESSENTIAL (PRIMARY) HYPERTENSION Status: Acute Qualifiers: Hypertension type: essential hypertension Qualified Code(s): I10 - Essential (primary) hypertension (5) Hypertensive emergency Code(s): I16.1 - HYPERTENSIVE EMERGENCY Status: Resolved Comment: Resolved, continue Norvasc, add PRN Hydralazine (6) Diastolic dysfunction Code(s): I51.89 - OTHER ILL-DEFINED HEART DISEASES Status: Chronic Comment: HTN mgmt, Lipitor 40mg HS (7) Tobacco abuse Code(s): Z72.0 - TOBACCO USE Status: Chronic Comment: Cessation resources - Plan cont current plan of care, PT/OT, bilingual social worker trying to arrange placement * . - Discharge Day Encounter end time: 12:20
[2018-08-29] MEDS: Atorvastatin Calcium 40 MG TAB PO SCH (21:34)
--- NOTE | 2018-08-30 08:49 | PDOC.PN ---
- Subjective Encounter Start Date: 08/30/18 Encounter Start Time: 11:15 Subjective: Patient without complaints. No pain. No VELASQUEZ. Working with PT. - Objective MAR Reviewed: Yes Vital Signs & Weight: Vital Signs (12 hours) Temp Pulse Resp BP Pulse Ox 08/30/18 07:47 98.3 F 56 L 16 121/61 96 08/30/18 04:00 98.3 F 52 L 18 107/66 98 08/30/18 00:00 98.1 F 54 L 18 119/74 96 Weight Weight 131 lb 4 oz Most Recent Monitor Data Heart Rate from ECG 72 NIBP 137/92 NIBP BP-Mean 107 Respiration from ECG 15 SpO2 98 I&O: 08/29/18 08/30/18 08/31/18 06:59 06:59 06:59 Intake Total 1590 1255 Balance 1590 1255 Result Diagrams: 08/28/18 04:42 08/28/18 04:42 Phys Exam - Physical Examination Constitutional: NAD HEENT: moist MMs Respiratory: no wheezing, no rales, no rhonchi Cardiovascular: RRR, no significant murmur Gastrointestinal: soft, positive bowel sounds right sided weakness Psychiatric: normal affect, A&O x 3 Dx/Plan (1) Acute right hemiparesis Code(s): G81.91 - HEMIPLEGIA, UNSPECIFIED AFFECTING RIGHT DOMINANT SIDE Status : Acute (2) Brain bleed Code(s): I61.9 - NONTRAUMATIC INTRACEREBRAL HEMORRHAGE, UNSPECIFIED Status: Acute (3) Hypertension Code(s): I10 - ESSENTIAL (PRIMARY) HYPERTENSION Status: Acute Qualifiers: Hypertension type: essential hypertension Qualified Code(s): I10 - Essential (primary) hypertension (4) Hypertensive emergency Code(s): I16.1 - HYPERTENSIVE EMERGENCY Status: Resolved Comment: Resolved, continue Norvasc, add PRN Hydralazine (5) Diastolic dysfunction Code(s): I51.89 - OTHER ILL-DEFINED HEART DISEASES Status: Chronic Comment: HTN mgmt, Lipitor 40mg HS (6) Tobacco abuse Code(s): Z72.0 - TOBACCO USE Status: Chronic Comment: Cessation resources - Plan cont current plan of care discharge to [facility] today * . - Discharge Day Encounter end time: 11:30
[2018-08-30] MEDS: Amlodipine 10 MG TAB PO SCH (09:24)
[2018-08-30] MEDS: Famotidine 20 MG TAB PO SCH (09:24)
[2018-08-30] MEDS: Lisinopril 10 MG TAB PO SCH (09:24)
[2018-08-30 11:51] VITALS: BP 113/60; TEMP 98.6
--- NOTE | 2018-08-30 14:03 | DIS ---
DATE OF ADMISSION: 08/19/2018 DATE OF DISCHARGE: 08/30/2018 PRIMARY CARE PHYSICIAN: Toshia Franco. REASON FOR ADMISSION: Intracranial hemorrhage. DIAGNOSES AT DISCHARGE: 1. Acute intracranial hemorrhage. 2. Right hemiparesis. 3. Hypertensive emergency, resolved. 4. Hypertension. 5. Diastolic dysfunction. 6. Tobacco abuse. PROCEDURES: 1. CT of the brain without contrast showing interval enlargement of the intraparenchymal hemorrhage seen within the left globus pallidus with interval development of slight [id number] midline shift at 3 mm. 2. Carotid Dopplers showing no hemodynamically significant stenosis. 3. MRI of the brain showing intra-axial hemorrhage centered within the basal ganglia on the left, slightly enlarged in size with degree of mass effect slightly worsened compared to previous CT. 4. Echocardiogram showing an ejection fraction of 60% to 65% and grade 1/3 diastolic dysfunction. CONSULTATIONS: 1. Pulmonology, Dr. Hodges. 2. Neurosurgery originally on the Primary Team, Dr. Lake. [facility]. 4. Neurology, Dr. Nickie Almaguer. SUMMARY OF HOSPITAL COURSE: This is a 58-year-old female, transferred from [place] for an acute intracranial hemorrhage. The patient was reportedly at her job when she had sudden onset of slurred speech, right-sided weakness, and was brought to the ER. CT head on arrival to the ER showed notable for left basal ganglia intracranial hemorrhage. She originally was started on nitroglycerin drip for some hypertension. She was also given some Ativan for seizure prophylaxis. Neurosurgery was consulted by the ER and admitted the patient for observation and blood pressure control. They recommended keeping her blood pressure under [address] Hodges was consulted on arrival to the ICU and [facility] for medical management as well. The patient was stable during her hospitalization. She did have some mild worsening of the bleed on her imaging, but no changes in her mental status or symptoms and she had some mild improvement over the course of her hospitalization, working with Physical Therapy. She had her blood pressure controlled. The patient was eventually stable for discharge. However, due to lack of funding, it was difficult to find her a place. Eventually, she was accepted to [facility] with Medicaid pending and she is being discharged today. DISCHARGE MANAGEMENT: Discharged to [facility]. ACTIVITY: As tolerated. DIET: Healthy heart, low-sodium diet with mechanical soft ground meats. No bread textures and thin liquids. THERAPY: Occupational, Physical, and Speech Therapy if available. FOLLOWUP: Follow up with primary care physician in the next 1 to 2 weeks. MEDICATIONS: 1. Acetaminophen as needed. 2. Amlodipine 10 mg daily. 3. Atorvastatin 40 mg at night. 4. Pepcid 20 mg twice a day. 5. Lisinopril 10 mg daily. Job ID: [id number]
== END 2018-08-30 14:15 | DRG 65 ==
LOC: ERS 14:13 → CCU 15:06 → 2SE 16:37
PROVIDERS: ADMIT Neurological Surgery; ATTEND Neurological Surgery
DX: I61.9 Nontraumatic intracerebral hemorrhage, unspecified (principal); G81.91 Hemiplegia, unspecified affecting right dominant side; I16.1 Hypertensive emergency; I10 Essential (primary) hypertension; F17.210 Nicotine dependence, cigarettes, uncomplicated; R26.9 Unspecified abnormalities of gait and mobility; R47.02 Dysphasia; R13.10 Dysphagia, unspecified; R40.2432 Glasgow coma scale score 3-8, at arrival to emergency department; R40.2352 Coma scale, best motor response, localizes pain, at arrival to emergency department; R40.2122 Coma scale, eyes open, to pain, at arrival to emergency department; R40.2222 Coma scale, best verbal response, incomprehensible words, at arrival to emergency department; F12.10 Cannabis abuse, uncomplicated; R47.81 Slurred speech; R29.810 Facial weakness; F10.10 Alcohol abuse, uncomplicated; R47.1 Dysarthria and anarthria
CPT/HCPCS: 36415; 70450; 70551; 71045; 80048; 83735; 85025; 93306; 93880; J0131; J2405; J3411; J7050; S0028

== ENCOUNTER 2018-12-31 12:00 | Emergency (ER) | payer SELFPAY ==
[2018-12-31] MEDS ORDERED: Acetaminophen/Codeine 30-300mg Tablet ONE (12:31)
[2018-12-31] MEDS ORDERED: Amoxicillin/Potassium Clav 875 MG TAB ONE (12:31)
== END 2018-12-31 12:37 | disposition home or self-care (01) ==
LOC: ERS 12:00
DX: K08.89 Other specified disorders of teeth and supporting structures (principal); F17.210 Nicotine dependence, cigarettes, uncomplicated; I10 Essential (primary) hypertension; Z86.73 Personal history of transient ischemic attack (TIA), and cerebral infarction without residual deficits
CPT/HCPCS: 99282

== ENCOUNTER 2019-01-19 14:22 | Observation (INO) | payer SELFPAY ==
[2019-01-19] MEDS ORDERED: Acetaminophen 325 MG TAB PO PRN (18:05)
[2019-01-19] MEDS ORDERED: Senokot S 8.6-50 MG TAB PO PRN (18:05)
[2019-01-19] MEDS ORDERED: Acetaminophen 650 MG Suppository PR PRN (18:05)
[2019-01-19] MEDS ORDERED: Ondansetron PF 4 MG/2 ML Vial IVP PRN (18:05)
[2019-01-19] MEDS ORDERED: Ondansetron ODT 4 MG TAB PO PRN (18:05)
[2019-01-19] MEDS ORDERED: Nicotine 14 MG PATCH TD SCH (18:15)
[2019-01-19 19:20] VITALS: BMI 21.1
[2019-01-19 19:48] LABS: Magnesium 1.8 mg/dL (1.6-2.6)
--- NOTE | 2019-01-19 19:49 | HP ---
PRIMARY CARE PHYSICIAN: Dr. Houston. CHIEF COMPLAINT: Worsening right-sided numbness and weakness. HISTORY OF PRESENT ILLNESS: Ms. Callaway is a 58-year-old woman with a known history of hemorrhagic stroke in July 2018 from which she has had residual right-sided deficits. The patient states for the last 2 weeks, she has noted worsening in numbness and weakness involving the right side of her face, her right arm, and right leg. She states it has been very brief, but today, it became significantly worse and has remained constant. The patient states she was starting to regain function in her right arm and now has significant weakness. She previously had altered sensation to the right side of her face, but now has complete numbness of her ear and right cheek. Denies having any headaches or dizziness. Her speech has been unchanged. She reports having longstanding issues with difficulty swallowing cold water, but this has been unchanged since her stroke. Denies any other difficulties with swallowing. Denies any chest pain, palpitations, or shortness of breath. No fevers or chills. No neck pain or swelling. Has not had any trauma. REVIEW OF SYSTEMS: Denies having any dysuria, hematuria, urgency, or frequency. No constipation, melena, or bright red blood in stool. No urinary or stool incontinence. Denies having any other complaints. PAST MEDICAL HISTORY: 1. History of hemorrhagic stroke in July 2018 with residual right-sided deficits. 2. Hypertension. 3. Tobacco abuse. 4. Alcohol abuse. PAST SURGICAL HISTORY: None. SOCIAL HISTORY: The patient reports living at home with her . She smokes marijuana and also smokes 3 cigarettes a day; however, told to nurse she smokes a pack a day. The patient reports drinking 4 beers a day and 2 mixed drinks a day. Denies any history of withdrawal seizures or tremors. ALLERGIES: NO KNOWN DRUG ALLERGIES. CURRENT MEDICATIONS: 1. Tylenol Extra Strength. 2. Amlodipine. 3. Lisinopril. PHYSICAL EXAMINATION: GENERAL: The patient appears well developed, well nourished, who is in no acute distress. She was found resting comfortably in bed. VITAL SIGNS: Temperature 98.5, blood pressure 109/78, pulse 77, respirations 18, and O2 saturation 98% on room air. HEENT: Normocephalic and atraumatic. Pupils are equal, round, and reactive to light. Sclerae without icterus. Oropharynx is clear. She does have evidence of a slight facial droop. Extraocular movements intact. NECK: Supple. LUNGS: Clear to auscultation bilaterally without wheezes, rales, or rhonchi. CARDIAC: Regular rate and rhythm without audible murmurs, rubs, or gallops. ABDOMEN: Soft, nontender, nondistended. Normoactive bowel sounds present. EXTREMITIES: No lower leg swelling or edema. No calf tenderness. NEUROLOGIC: Alert and oriented x3 with significantly reduced sensation involving the right side of her face including her ear and neck. No tongue deviation. Right upper and lower extremity weakness with reduced sensation. Power 2/5 in right leg, 1/5 in right arm. Slurred speech, but unchanged as per patient. SKIN: Without rash or jaundice. Warm and dry. LABORATORY DATA: White blood cell count 5.1, hemoglobin 12.4, hematocrit 39.3, and platelets 157. Sodium 135, potassium 4.1, BUN 8, creatinine 0.65, GFR greater than 90, glucose 99, calcium 9.0, total bilirubin 0.8, AST 76, ALT 46, alkaline phosphatase 67, CK 83. Troponin-I negative, and albumin 4.2. IMAGING DATA: CT of the brain showed no evidence of acute intracranial abnormality. IMPRESSION AND PLAN: Ms. Callaway is a very pleasant 58-year-old woman who is being referred for management of the following; 1. Worsening right-sided weakness. The patient with a possible recurrent cerebrovascular accident. No evidence of hemorrhagic stroke on CT. MRI of the brain requested. The patient recently underwent investigations including an echocardiogram and carotid Dopplers in July; therefore, these are unlikely to be unchanged and therefore, we will not repeat. Echo done on August 19, 2018, showed an ejection fraction of 60% to 65% with grade 1/3 diastolic dysfunction. Carotid Dopplers done at that time demonstrated no hemodynamically significant stenosis. She did have moderate partially-calcified atherosclerotic plaque involving the right proximal internal carotid artery with mildly partially-calcified atherosclerotic plaque involving the proximal left internal carotid artery. Intimal thickening in the common carotid arteries bilaterally. 2. Consult has been placed in Neurology. Bedside swallow study to be done given the patient's complaint of choking on water on occasion. We will continue to monitor overnight. The patient has not been on a baby aspirin. Therefore, we will resume statin and start her on baby aspirin. She did receive 325 mg of aspirin in the ED. 3. Hypertension. Resume home medications and monitor her blood pressure. 4. Alcohol abuse. The patient drinks 4 beers a day and 2 mixed drinks every night. Denies any history of withdrawal symptoms, but we will initiate PRISCILA protocol. Urine drug screen requested as well as alcohol level. 5. Tobacco use. Nicotine patch per the patient's request. 6. Deep venous thrombosis prophylaxis. Mechanical SCDs. 7. Code status, full. Her surrogate decision maker is her , Aftab Nobles. The patient's case to be discussed with attending for further recommendations. Job ID: [id number]
[2019-01-19] MEDS: Famotidine/PF 20 mg/2ml Vial SLOW IVP SCH (20:16)
[2019-01-19] MEDS ORDERED: Atorvastatin Calcium 40 MG TAB PO SCH (21:00)
[2019-01-19 22:35] LABS: Bilirubin Negative (Negative); Blood, Urine Negative (Negative); Clarity Clear (Clear); Glucose, Urine (Dipstick) Normal (Negative); Leukocyte Negative Leu/uL (Negative); Nitrite Negative (Negative); Protein, Urine (Dipstick) Negative (Neg-Trace); RBC/HPF 0-3 HPF (0-3); Squamous Epithelial 0-3 HPF (0-3); Urobilinogen Normal mg/dL (Less than 2); WBC/HPF 0-3 HPF (0-3)
[2019-01-19 22:39] LABS: Mucous/LPF Rare LPF (<2+)
[2019-01-19 22:46] LABS: Amphetamine Not Detected (NotDetected); Barbiturates Screen Not Detected (NotDetected); Benzodiazepine Screen Not Detected (NotDetected); Cocaine Metabolite Screen Not Detected (NotDetected); Medtox Control Line Valid? VALID (VALID); Medtox Reader # READER 1; Methadone Not Detected (NotDetected); Methamphetamine Not Detected (NotDetected); Opiate Screen Not Detected (NotDetected); Oxycodone Screen Not Detected (NotDetected); Phencyclidine (PCP) Not Detected (NotDetected); THC/Cannabinoid Screen Not Detected (NotDetected); Tricyclic Screen Not Detected (NotDetected)
[2019-01-19 22:52] LABS: Bacteria/HPF Rare-Few HPF (None Seen)
[2019-01-19 22:53] LABS: Urine Culture Reflex No No
[2019-01-20 05:06] LABS: #Basophils 0.1 thou/uL (0.0-0.2); #Eosinphils 0.1 thou/uL (0.0-0.7); #Lymphocytes 2.4 thou/uL (1.20-3.40); #Monocytes 0.4 thou/uL (0.11-0.59); #Neutrophils 2.4 thou/uL (1.40-6.50); %Basophils 0.9 % (0.0-1.0); %Eosinophils 2.5 % (0.0-10.0); %Lymphocytes 44.2 % (21.0-51.0); %Monocytes 8.2 % (0.0-10.0); %Neutrophils 44.2 % (42.0-75.0); Hemoglobin 12.2 g/dL (12.0-16.0); Mean Corpuscular HGB CONC 33.6 g/dL (32.0-36.0); Mean Corpuscular Hemoglobin 32.1 pg (27.0-31.0); Mean Corpuscular Volume 95.4 fL (78.0-98.0); Mean Platelet Volume 8.6 fL (7.4-10.4); Platelet Count 146 thou/uL (130-400); RBC Distribution Width 12.7 % (11.5-14.5); Red Blood Cell (RBC) Count 3.81 mill/uL (4.20-5.40); White Blood Cell (WBC) Count 5.4 thou/uL (4.8-10.8)
[2019-01-20 05:22] LABS: Anion Gap 12 mmol/L (10-20); BUN (Urea Nitrogen) 8 mg/dL (9.8-20.1); Calc. Creatinine Clearance 84 mL/min (70-130); Calcium 9.8 mg/dL (7.8-10.44); Carbon Dioxide 24 mmol/L (22-29); Cardiac Risk 2.4 (Less than 4.5); Chloride 103 mmol/L (98-107); Cholesterol 115 mg/dl (< 200 Desired); Estimated GFR-MDRD Greater than 90; Glucose 105 mg/dL (70-105); HDL Cholesterol 48 mg/dL (>60 Neg Risk); LDL Cholesterol, Calculated 45 mg/dL; Potassium 3.3 mmol/L (3.5-5.1); Sodium 136 mmol/L (136-145); Triglycerides 108 mg/dL (Less than 150)
[2019-01-20] MEDS ORDERED: Potassium Chloride 20 MEQ TAB PO SCH (08:30)
[2019-01-20] MEDS ORDERED: Prevnar 13-Val Conj/PF 0.5 ML SYRINGE IM ONE (09:00)
[2019-01-20] MEDS ORDERED: Lisinopril 10 MG TAB PO SCH (09:00)
[2019-01-20] MEDS ORDERED: Amlodipine 10 MG TAB PO SCH (09:00)
[2019-01-20] MEDS ORDERED: Aspirin 81 mg Enteric Coated Tablet PO SCH (09:00)
[2019-01-20] MEDS: Famotidine/PF 20 mg/2ml Vial SLOW IVP SCH (09:48)
--- NOTE | 2019-01-20 11:26 | MRI ---
MRI BRAIN WITHOUT CONTRAST: HISTORY: Right facial numbness COMPARISON: 08/20/2018 CORRELATION: CT scan from 08/22/2018. FINDINGS: No restricted diffusion is seen. There are multiple foci of T2 prolongation in the periventricular wh ite matter, consistent with chronic small vessel ischemic disease. The ventricular size is appropriate and the basilar cisterns are patent. There is hemosiderin deposition from chronic hemorrh age in the left basal ganglia, right basal ganglia and right internal capsule. No evidence of acute infarct, acute/subacute hemorrhage, midline shift or abnormal extra-axial fluid collections is seen. The visualized paranasal sinuses and mastoid air cells are well-aerated. IMPRESSION: No evidence of acute intracranial process.
[2019-01-20 11:46] VITALS: BP 137/94; TEMP 98.3
--- NOTE | 2019-01-20 13:18 | CON ---
DATE OF CONSULTATION: 01/20/2019 CONSULTING PHYSICIAN: Hospitalist Service. IMPRESSION: 1. Subjective increased numbness on the right side. 2. Recent history of a left basal ganglia hemorrhage. 3. Hypertension. PLAN: MRI of the brain to confirm whether there has been a new ischemic event versus subjective variability in symptomatology. HISTORY OF PRESENT ILLNESS: Ms. Callaway is a 58-year-old black female, who was admitted in July with acute left ankle basal ganglia hemorrhage. This resulted in some spastic right hemiparesis. She was seeing some slow improvement in her strength. She became concerned when she started to have a sensation as if tears were running out of her right eye. She felt like the right side of her face was more numb than normal. She thought that possibly the right arm was a bit weaker than it had been. She was seen in the emergency room last night and a CT scan of the brain did not reveal any acute changes. She continues to complain that things feel different and her blood pressures have been under good control. She has been afebrile since admission. Her lab studies on admission were all unremarkable as well. PAST MEDICAL HISTORY: Hypertension. SOCIAL HISTORY: No tobacco or illicit drug use. FAMILY HISTORY: Noncontributory. ALLERGIES: NONE. MEDICATIONS: Reviewed, REVIEW OF SYSTEMS: Ten system review of systems is otherwise negative. PHYSICAL EXAMINATION: VITAL SIGNS: Blood pressure 117/76, pulse 78, respirations 16, and temperature 98.2. HEENT: Pupils are equal and reactive. Conjunctivae are clear. Oropharynx clear. Cranium; normocephalic and atraumatic. NECK: Supple. EXTREMITIES: No cyanosis or edema. NEUROLOGIC: She is alert and cooperative. Her speech is fluent and clear. Cranial nerve exam shows flattening of the right nasolabial fold. She also has diminished light touch sensation on the right side of the face. Motor exam shows spastic weakness with antigravity strength in the right arm. Rapid alternating movements are diminished on the right. Sensation is subjectively decreased in the right arm and leg. Gait was not tested. Plantar responses were upgoing on the right, downgoing on the left. IMAGING: Reviewed. SUMMARY: This is a middle-aged woman, who presented earlier this year with basal ganglia hemorrhage and is complaining of some subjective worsening of her neurologic symptoms. We will see if there is anything acutely different on her MRI. Sometimes there is variability in symptoms post stroke that are insignificant. Blood pressure is under good control. She has been started on aspirin and a followup on her results. Job ID: [id number]
--- NOTE | 2019-01-20 14:46 | DIS ---
DATE OF ADMISSION: 01/19/2019 DATE OF DISCHARGE: 01/20/2019 PRIMARY CARE PHYSICIAN: [facility] Call Admission. DISCHARGE DISPOSITION: Home. PRIMARY DISCHARGE DIAGNOSIS: Right-sided weakness, subjective, improved. SECONDARY DISCHARGE DIAGNOSES: 1. Tobacco abuse disorder. 2. Hypertension. 3. Diastolic dysfunction. 4. History of hemorrhagic cerebrovascular accident with residual right-sided weakness. 5. Alcohol abuse. PRIMARY PROCEDURE/OPERATION: None. RADIOLOGICAL INVESTIGATION: MRI brain did not show any acute process. SIGNIFICANT LABORATORY DATA: Hemoglobin 12.2. Creatinine 0.70. LDL 45. Urinalysis normal. Urine drug screen negative. DISCHARGE MEDICATIONS: 1. Aspirin 81 mg daily. 2. Lipitor 40 mg p.o. at bedtime. 3. Norvasc 10 mg daily. 4. Lisinopril 10 mg daily. CONTRAINDICATION: None. CODE STATUS: Full code. INPATIENT PICTURE HANGER: Neurology. TEST RESULT PENDING ON DISCHARGE: None. ALLERGIES: NO KNOWN DRUG ALLERGIES. DISCHARGE PLAN: Posthospital, the patient will follow up with Nguyen Houston in 1 week. HOSPITAL COURSE: A 58-year-old female, who has previous history of hemorrhagic CVA. She was admitted by Christi Mercado. Please see her H and P for further details. She has previous history of hemorrhagic stroke and she has residual right-sided weakness, but the patient was subjectively experiencing more right-sided weakness and that is why she was admitted to the hospital to rule out new CVA. MRI brain did not show any new acute process and she did not have any more weakness while in the hospital. This patient is started on aspirin and Lipitor on her regimen. Rest of medication will be continuing. I have seen and examined the patient at the bedside today. Plan of care discussed with the family member. Her examination is unremarkable other than mild residual weakness on the right side. The patient is advised to keep checking blood pressure at home and follow up with primary care physician with blood pressure diary. Overall, the patient is medically stable for discharge today. Job ID: [id number]
== END 2019-01-20 12:49 | disposition home or self-care (01) ==
LOC: ERS 14:22 → 2SE 17:28
PROVIDERS: ADMIT Internal Medicine; ATTEND Internal Medicine
DX: R53.1 Weakness (principal); I69.151 Hemiplegia and hemiparesis following nontraumatic intracerebral hemorrhage affecting right dominant side; R20.0 Anesthesia of skin; I10 Essential (primary) hypertension; F17.210 Nicotine dependence, cigarettes, uncomplicated; F10.10 Alcohol abuse, uncomplicated; Z79.899 Other long term (current) drug therapy
CPT/HCPCS: 36415; 70551; 80048; 80061; 80306; 80307; 81001; 83735; 85025; 85652; 86140; 90471; 90670; 96374; 96376; 99285; G0009; G0378; S0028

== ENCOUNTER 2019-08-15 09:33 | Emergency (ER) | payer MEDICAID, SELFPAY ==
[2019-08-15 11:07] LABS: #Eosinphils 0.3 thou/uL (0.0-0.7); #Lymphocytes 1.6 thou/uL (1.20-3.40); #Monocytes 0.5 thou/uL (0.11-0.59); #Neutrophils 2.9 thou/uL (1.40-6.50); %Basophils 0.9 % (0.0-1.0); %Eosinophils 5.7 % (0.0-10.0); %Lymphocytes 29.7 % (21.0-51.0); %Monocytes 9.4 % (0.0-10.0); %Neutrophils 54.3 % (42.0-75.0); Mean Corpuscular Hemoglobin 33.6 pg (27.0-31.0); Mean Platelet Volume 8.5 fL (7.4-10.4); Platelet Count 142 thou/uL (130-400); RBC Distribution Width 12.4 % (11.5-14.5); Red Blood Cell (RBC) Count 3.89 mill/uL (4.20-5.40); White Blood Cell (WBC) Count 5.3 thou/uL (4.8-10.8)
--- NOTE | 2019-08-15 11:12 | CT ---
CT head noncontrast HISTORY: Altered mental status. Prior CVA. One week of right hand and foot symptoms. COMPARISON: 01/19/2019. FINDINGS: There is no evidence of acute intracranial hemorrhage or infarct. Irregular shaped area of CSF density at the left basal ganglia is unchanged in appearance. Consistent with encephalomalacia from prior insult. Mild chronic ischemic small vessel disease is present within the right basal gangl ia and throughout the periventricular white matter of each cerebral hemisphere. There is no mass effect or shift of midline structures. Ventricles appear normal in size, shape and position. Visualiz ed paranasal sinuses remain well-aerated. IMPRESSION: Chronic-type findings are stable. No acute intracranial abnormalities are demonstrated. Findings were called to Lenard Houston in the emergency department at 1105 hours. Code CR.
[2019-08-15 11:39] LABS: ALT (SGPT) 55 U/L (8-55); AST (SGOT) 70 U/L (5-34); Albumin 4.1 g/dL (3.5-5.0); Alkaline Phosphatase 60 U/L (40-110); Anion Gap 14 mmol/L (10-20); BUN (Urea Nitrogen) 4 mg/dL (9.8-20.1); Bilirubin, Total 0.8 mg/dL (0.2-1.2); Calc. Creatinine Clearance 0 mL/min (70-130); Calcium 9.7 mg/dL (7.8-10.44); Carbon Dioxide 24 mmol/L (22-29); Chloride 106 mmol/L (98-107); Estimated GFR-MDRD Greater than 90; Globulin 3.6 g/dL (2.4-3.5); Glucose 121 mg/dL (70-105); Potassium 3.5 mmol/L (3.5-5.1); Protein, Total 7.7 g/dL (6.0-8.3); Sodium 140 mmol/L (136-145)
[2019-08-15] MEDS ORDERED: Acetaminophen 325 MG TAB ONE (12:44)
[2019-08-15] MEDS ORDERED: traMADol HCl 50 MG TAB ONE (12:45)
== END 2019-08-15 13:20 | disposition home or self-care (01) ==
LOC: ERS 09:33
DX: M79.641 Pain in right hand (principal); M79.671 Pain in right foot; R20.0 Anesthesia of skin; G24.9 Dystonia, unspecified; R53.1 Weakness; Z87.891 Personal history of nicotine dependence; Z79.899 Other long term (current) drug therapy
CPT/HCPCS: 36415; 70450; 80053; 84484; 85025; 93005

== ENCOUNTER 2023-03-15 11:16 | Emergency (ER) | payer OTHER, MEDICAID ==
[2023-03-15 13:00] LABS: #Eosinphils 0.1 thou/uL (0.0-0.7); #Monocytes 0.4 thou/uL (0.11-0.59); %Basophils 0.9 % (0.0-1.0); %Eosinophils 1.6 % (0.0-10.0); %Lymphocytes 43.1 % (21.0-51.0); %Monocytes 8.8 % (0.0-10.0); %Neutrophils 45.6 % (42.0-75.0); Hematocrit 37.6 % (36.0-47.0); Hemoglobin 12.8 g/dL (12.0-16.0); Mean Corpuscular Hemoglobin 33.1 pg (27.0-31.0); Mean Corpuscular Volume 97.2 fl (78.0-98.0); Mean Platelet Volume 10.7 fL (7.4-10.4); Platelet Count 141 10x3/uL (130-400); RBC Distribution Width 17.3 % (11.5-14.5); Red Blood Cell (RBC) Count 3.87 mill/uL (4.20-5.40); White Blood Cell (WBC) Count 4.5 10x3/uL (4.8-10.8)
[2023-03-15 13:33] LABS: ALT (SGPT) 48 U/L (8-55); AST (SGOT) 70 U/L (5-34); Albumin 4.5 g/dL (3.5-5.0); Alkaline Phosphatase 69 U/L (40-110); Anion Gap 15 mmol/L (10-20); BUN (Urea Nitrogen) 4 mg/dL (9.8-20.1); Bilirubin, Total 0.4 mg/dL (0.2-1.2); Calc. Creatinine Clearance 0 mL/min (70-130); Calcium 9.7 mg/dL (7.8-10.44); Carbon Dioxide 20 mmol/L (22-29); Chloride 102 mmol/L (98-107); Estimated GFR 100; Globulin 3.3 g/dL (2.4-3.5); Glucose 103 mg/dL (70-105); Potassium 3.2 mmol/L (3.5-5.1); Protein, Total 7.8 g/dL (6.0-8.3); Sodium 134 mmol/L (136-145)
[2023-03-15 13:37] LABS: Troponin I Less than 0.010 ng/mL (< 0.028)
[2023-03-15] MEDS ORDERED: Potassium Chloride 20 MEQ TAB ONE (15:10)
[2023-03-15 15:44] LABS: Lactic Acid 3.1 mmol/L (0.5-2.2)
== END 2023-03-15 15:32 | disposition left against medical advice (07) ==
LOC: ERS 11:16
DX: E87.6 Hypokalemia (principal); E87.20 Acidosis, unspecified; K21.9 Gastro-esophageal reflux disease without esophagitis; E78.5 Hyperlipidemia, unspecified; Z87.891 Personal history of nicotine dependence; I10 Essential (primary) hypertension
CPT/HCPCS: 36415; 71045; 80053; 83605; 83880; 84484; 85025; 85379; 87040; 96360

== ENCOUNTER 2023-09-20 11:01 | Observation (INO) | payer OTHER ==
[2023-09-20 11:52] LABS: #Basophils 0.04 10x3/uL (0.0-0.2); %Basophils 0.8 % (0.0-1.0); %Eosinophils 1.4 % (0.0-10.0); %Lymphocytes 37.6 % (21.0-51.0); %Monocytes 7.2 % (0.0-10.0); %Neutrophils 52.8 % (42.0-75.0); Hematocrit 40.6 % (36.0-47.0); Hemoglobin 13.8 g/dL (12.0-16.0); Mean Corpuscular Hemoglobin 31.9 pg (27.0-31.0); Mean Corpuscular Volume 93.8 fL (78.0-98.0); Mean Platelet Volume 9.8 fL (7.4-10.4); Platelet Count 177 10x3/uL (130-400); RBC Distribution Width 14.6 % (11.5-14.5); Red Blood Cell (RBC) Count 4.33 mill/uL (4.20-5.40)
[2023-09-20 12:10] LABS: ALT (SGPT) 60 U/L (8-55); AST (SGOT) 70 U/L (5-34); Albumin 4.4 g/dL (3.4-4.8); Alkaline Phosphatase 69 U/L (40-110); Anion Gap 16 mmol/L (10-20); BUN (Urea Nitrogen) 5 mg/dL (9.8-20.1); Bilirubin, Total 0.6 mg/dL (0.2-1.2); Calc. Creatinine Clearance 0 mL/min (70-130); Calcium 9.5 mg/dL (7.8-10.44); Carbon Dioxide 21 mmol/L (23-31); Chloride 102 mmol/L (98-107); Estimated GFR 94; Globulin 3.5 g/dL (2.4-3.5); Glucose 133 mg/dL (80-115); Potassium 3.7 mmol/L (3.5-5.1); Protein, Total 7.9 g/dL (5.8-8.1); Sodium 135 mmol/L (136-145)
[2023-09-20 12:11] LABS: INR-International Normal Ratio 1.1; Prothrombin Time 13.9 sec (12.0-14.7)
[2023-09-20 12:12] LABS: PTT 32.9 sec (22.9-36.1)
[2023-09-20 17:52] VITALS: BMI 22.8
[2023-09-21 04:58] LABS: #Basophils 0.05 10x3/uL (0.0-0.2); %Basophils 0.9 % (0.0-1.0); %Eosinophils 2.5 % (0.0-10.0); %Lymphocytes 44.6 % (21.0-51.0); %Monocytes 9.1 % (0.0-10.0); %Neutrophils 42.5 % (42.0-75.0); Hematocrit 36.4 % (36.0-47.0); Hemoglobin 12.1 g/dL (12.0-16.0); Mean Corpuscular HGB CONC 33.2 g/dL (32.0-36.0); Mean Corpuscular Hemoglobin 31.8 pg (27.0-31.0); Mean Corpuscular Volume 95.8 fL (78.0-98.0); Mean Platelet Volume 10.2 fL (7.4-10.4); Platelet Count 155 10x3/uL (130-400); RBC Distribution Width 14.9 % (11.5-14.5)
[2023-09-21 05:27] LABS: Anion Gap 14 mmol/L (10-20); BUN (Urea Nitrogen) 4 mg/dL (9.8-20.1); Calc. Creatinine Clearance 80 mL/min (70-130); Calcium 9.6 mg/dL (7.8-10.44); Carbon Dioxide 24 mmol/L (23-31); Cardiac Risk 2.7 (Less than 4.5); Chloride 104 mmol/L (98-107); Cholesterol 143 mg/dl (< 200 Desired); Estimated GFR 91; Glucose 98 mg/dL (80-115); HDL Cholesterol 53 mg/dL (>60 Neg Risk); LDL Cholesterol, Calculated 62 mg/dL; Potassium 4.4 mmol/L (3.5-5.1); Sodium 138 mmol/L (136-145); Triglycerides 138 mg/dL (Less than 150)
[2023-09-21 05:28] LABS: Hemoglobin A1c 4.8 % (4.0-6.0)
[2023-09-22 05:53] LABS: #Basophils 0.07 10x3/uL (0.0-0.2); %Basophils 1.3 % (0.0-1.0); %Eosinophils 3.2 % (0.0-10.0); %Lymphocytes 40.9 % (21.0-51.0); %Monocytes 11.6 % (0.0-10.0); Hemoglobin 12.5 g/dL (12.0-16.0); Mean Corpuscular HGB CONC 32.1 g/dL (32.0-36.0); Mean Corpuscular Hemoglobin 31.8 pg (27.0-31.0); Mean Corpuscular Volume 99.2 fL (78.0-98.0); Platelet Count 132 10x3/uL (130-400); RBC Distribution Width 14.6 % (11.5-14.5); Red Blood Cell (RBC) Count 3.93 mill/uL (4.20-5.40)
[2023-09-22 06:04] LABS: Anion Gap 15 mmol/L (10-20); BUN (Urea Nitrogen) 7 mg/dL (9.8-20.1); Calc. Creatinine Clearance 86 mL/min (70-130); Calcium 9.6 mg/dL (7.8-10.44); Carbon Dioxide 21 mmol/L (23-31); Chloride 103 mmol/L (98-107); Estimated GFR 98; Glucose 109 mg/dL (80-115); Potassium 4.2 mmol/L (3.5-5.1); Sodium 135 mmol/L (136-145)
[2023-09-22 08:30] VITALS: TEMP 97.7
[2023-09-22 09:25] VITALS: BP 118/71
== END 2023-09-22 12:08 | disposition home or self-care (01) ==
LOC: ERS 11:01 → ERHOLD 14:27 → INTOOBSV 14:27 → 2SE 17:39
PROVIDERS: ADMIT Family Medicine; ATTEND Internal Medicine
DX: I69.351 Hemiplegia and hemiparesis following cerebral infarction affecting right dominant side (principal); E78.5 Hyperlipidemia, unspecified; I25.10 Atherosclerotic heart disease of native coronary artery without angina pectoris; K21.9 Gastro-esophageal reflux disease without esophagitis; Z79.899 Other long term (current) drug therapy; Z79.82 Long term (current) use of aspirin; Z98.49 Cataract extraction status, unspecified eye; I11.9 Hypertensive heart disease without heart failure; F17.200 Nicotine dependence, unspecified, uncomplicated; I69.822 Dysarthria following other cerebrovascular disease; R13.19 Other dysphagia
CPT/HCPCS: 70496; 70498; 70551; 71045; 80048 ×2; 80053; 80061; 82962; 83036; 84443; 85025 ×3; 85610; 85730; 87040; 93005; 93306; 99285; G0378 ×4; 36415; 36416; Q9967

== ENCOUNTER 2023-12-22 15:13 | Emergency (ER) | payer OTHER ==
[2023-12-22] MEDS ORDERED: methylPREDNISolone Sod Succ/PF 125 MG/2 ML VIAL ONE (16:40)
== END 2023-12-22 17:27 | disposition home or self-care (01) ==
LOC: ERS 15:13
DX: G62.9 Polyneuropathy, unspecified (principal); I10 Essential (primary) hypertension; E78.00 Pure hypercholesterolemia, unspecified; Z79.899 Other long term (current) drug therapy
CPT/HCPCS: 96372; 99282; J2930

== ENCOUNTER 2024-03-23 10:34 | Outpatient (CLI) | payer OTHER | END 2024-03-23 10:35 | disposition home or self-care (01) | LOC: ULT 10:34 | PROVIDERS: ATTEND Physician Assistant Medical | DX: R93.2 Abnormal findings on diagnostic imaging of liver and biliary tract (principal); F10.11 Alcohol abuse, in remission; Z86.010 Personal history of colon polyps; K80.20 Calculus of gallbladder without cholecystitis without obstruction | CPT/HCPCS: 76705 ==

== ENCOUNTER 2024-06-15 12:51 | Emergency (ER) | payer OTHER ==
[2024-06-15 15:26] LABS: #Basophils 0.05 10x3/uL (0.0-0.2); %Basophils 0.9 % (0.0-1.0); %Eosinophils 2.1 % (0.0-10.0); %Lymphocytes 35.2 % (21.0-51.0); %Monocytes 6.9 % (0.0-10.0); %Neutrophils 54.4 % (42.0-75.0); Hematocrit 38.3 % (36.0-47.0); Hemoglobin 12.8 g/dL (12.0-16.0); Mean Corpuscular HGB CONC 33.4 g/dL (32.0-36.0); Mean Corpuscular Hemoglobin 31.6 pg (27.0-31.0); Mean Corpuscular Volume 94.6 fL (78.0-98.0); Mean Platelet Volume 10.3 fL (7.4-10.4); Platelet Count 134 10x3/uL (130-400); RBC Distribution Width 13.8 % (11.5-14.5); Red Blood Cell (RBC) Count 4.05 mill/uL (4.20-5.40)
[2024-06-15 15:43] LABS: ALT (SGPT) 45 U/L (8-55); AST (SGOT) 56 U/L (5-34); Alkaline Phosphatase 52 U/L (40-110); Anion Gap 16 mmol/L (10-20); BUN (Urea Nitrogen) 4 mg/dL (9.8-20.1); Bilirubin, Total 0.5 mg/dL (0.2-1.2); Calc. Creatinine Clearance 0 mL/min (70-130); Calcium 9.4 mg/dL (7.8-10.44); Carbon Dioxide 16 mmol/L (23-31); Chloride 99 mmol/L (98-107); Estimated GFR 99; Globulin 3.5 g/dL (2.4-3.5); Glucose 116 mg/dL (80-115); Potassium 3.5 mmol/L (3.5-5.1); Protein, Total 7.5 g/dL (5.8-8.1); Sodium 127 mmol/L (136-145)
[2024-06-15 15:45] LABS: Troponin I Less than 0.010 ng/mL (< 0.028)
[2024-06-15] MEDS ORDERED: Diazepam 5 MG TAB ONE (16:37)
[2024-06-15] MEDS ORDERED: Ketorolac Tromethamine 30 MG (1 mL) VIAL ONE (16:37)
[2024-06-15] MEDS ORDERED: predniSONE 20 MG TAB ONE (16:37)
== END 2024-06-15 17:15 | disposition home or self-care (01) ==
LOC: ERS 12:51
DX: M79.2 Neuralgia and neuritis, unspecified (principal); M79.10 Myalgia, unspecified site; I10 Essential (primary) hypertension; E78.00 Pure hypercholesterolemia, unspecified; Z87.891 Personal history of nicotine dependence; Z79.899 Other long term (current) drug therapy
CPT/HCPCS: 70450; 80053; 84484; 85025; 93005; J1885; 36415; 96374; J7512

== ENCOUNTER 2025-02-09 13:33 | Outpatient (CLI) | payer OTHER | END 2025-02-09 13:34 | disposition home or self-care (01) | LOC: BICMAMMO 13:33 | PROVIDERS: ATTEND Physician Assistant | DX: Z12.31 Encounter for screening mammogram for malignant neoplasm of breast (principal) | CPT/HCPCS: 77063; 77067 ==